=== PATIENT | female | born 1985 | race Caucasian/White ===

== ENCOUNTER 2017-08-12 03:51 | Emergency (ER) | payer BC ==
[~2017-08-12] VITALS: Ht 170.2 cm; Wt 86.5 kg
[2017-08-12 03:56] VITALS: Ht 170.2 cm; Wt 86.5 kg
[2017-08-12] MEDS ORDERED: SODIUM CHLORIDE 0.9% 1000ML 1,000 ML IV STA (04:09)
[2017-08-12] MEDS ORDERED: MoRPHine SULFATE 4 MG/ML 1 ML CARP\\VIAL IV STA ×2 (04:09→06:07)
[2017-08-12] MEDS ORDERED: ONDANSETRON INJ 2 MG/ML 2 ML VIAL IV STA (04:09)
[2017-08-12] MEDS ORDERED: FEXO1TAB58 PO (04:30)
[2017-08-12] MEDS ORDERED: ZOLP10TA PO (04:31)
[2017-08-12] MEDS ORDERED: ROPI5TAB PO (04:32)
[2017-08-12 04:33] VITALS: O2SAT 97
[2017-08-12] MEDS ORDERED: ATV/1 PO (04:33)
[2017-08-12 04:36] LABS: URINE APPEARANCE CLEAR (CLEAR); URINE BILIRUBIN NEG (NEG); URINE COLOR DK YELLOW; URINE NITRITE NEG (NEG); URINE SPECIFIC GRAVITY 1.027 (1.000-1.030); UROBILINOGEN NEG (NEG); ZZUR CULT IF INDIC CLEAN CATCH NO
[2017-08-12 04:37] LABS: BASO % 0.5 %; BASO ABS # 0.05 K/uL (0-0.2); COMPLETE YES; EOS % 1.5 %; HEMATOCRIT 41.7 % (37-47); IG% 0.4 %; LYMPH % 28.7 %; LYMPH ABS # 3.08 K/uL (1.2-3.4); MEAN CELL VOLUME 90.3 fL (80-100); MEAN CORPUSCULAR HEMOGLOBIN 31.6 pg (25-34); MEAN PLATELET VOLUME 9.8 fL (7.4-10.4); MONO % 7.7 %; NEUT % 61.2 %; PLATELET COUNT 272 K/uL (130-400); RED BLOOD COUNT 4.62 M/uL (4.2-5.4); WHITE BLOOD COUNT 10.74 K/uL (4.8-10.8)
[2017-08-12 04:56] LABS: ALT/SGPT 18 U/L (12-78); AST/SGOT 13 U/L (15-37); BLOOD UREA NITROGEN 11 mg/dl (7-18); BUN/CREATININE RATIO 13.5 (10-20); CALCIUM 8.8 mg/dl (8.5-10.1); CARBON DIOXIDE 22 mmol/L (21-32); CHLORIDE 108 mmol/L (98-107); CREATININE 0.81 mg/dl (0.60-1.20); GLUCOSE 92 mg/dl (70-99); POTASSIUM 3.7 mmol/L (3.5-5.1); SODIUM 139 mmol/L (136-145)
[2017-08-12 04:58] LABS: PREG INTERNAL NEGATIVE QC NEG CLEAR BACKGROUND; PREG INTERNAL POSITIVE QC POS CONTROL LINE
[2017-08-12 04:59] LABS: MANUAL MICROSCOPIC REQUIRED? NO; REVIEW REQ? NO
[2017-08-12 04:59] LABS: ALKALINE PHOSPHATASE 85 U/L (45-117)
[2017-08-12] MEDS ORDERED: ALUMINUM/MAGNESIUM SUSP 30 ML UDC PO STA (05:17)
[2017-08-12] MEDS ORDERED: LIDOCAINE HCL 2% VISC SOLN 20 ML UDC PO STA (05:17)
[2017-08-12] MEDS ORDERED: OXYC1TAB3 PO ×2 (06:04→06:06)
[2017-08-12] MEDS ORDERED: ONDA4TAB10 SL (06:04)
--- NOTE | 2017-08-12 06:05 | EMERGENCY ROOM VISIT NOTE ---
History First contact with patient: 04:02 Chief Complaint: ABDOMINAL PAIN Stated Complaint: LWR CHEST/UPR ABD PAIN,SHOULDER PAIN Nursing Triage Summary: Pt woke up at 0245 with severe right upper abd pain and left shoulder pain. History of Present Illness The patient is a 32 year old female who presents to the Emergency Room with complaints of severe right upper quadrant pain for the past few hours described as cramping, ranging in severity 8 out of 10. Nothing makes it better or worse. It radiates to her right shoulder. Patient had and sticky rice last night for dinner. No history of similar symptoms in the past. Patient denies chest pain, dyspnea, vomiting, urinary symptoms, fever, chills, cough, congestion. Patient denies recent or heavy alcohol use. Review of Systems See HPI for pertinent positives & negatives. A total of 10 systems reviewed and were otherwise negative. Past Medical/Surgical History Restless leg, tube ligation, anxiety, insomnia Social History Smoking Status: Never Smoker Smokeless Tobacco Use: No Alcohol Use: occasionally Drug Use: none Housing Status: lives with family Current/Historical Medications Scheduled Ondasetron Odt (Zofran Odt), 4 MG SL Q6H Ropinirole (Requip), 2.5 MG PO HS Zolpidem Tartrate (Ambien), 10 MG PO HS Scheduled PRN Fexofenadine-Pseudoephedrine (Paulina-D 24 Hour Allergy), 1 TAB PO DAILY PRN for ALLERGIC REACTION Lorazepam (Ativan), 1 MG PO TID PRN for Anxiety Allergies Coded Allergies: [place] (Verified Allergy, Mild, GI SYMPTOMS, 08/12/17) Latex1 -Allergic Contact Dermititis (Verified Allergy, Mild, RASH, ) Shellfish Allergy (Verified Allergy, Mild, GI SYMPTOMS, 08/12/17) Physical Exam Vital Signs Date Time Temp Pulse Resp B/P (MAP) Pulse Ox O2 Delivery O2 Flow Rate FiO2 08/12/17 05:58 82 123/67 97 Room Air 08/12/17 04:40 87 08/12/17 04:33 97 Room Air 08/12/17 03:56 36.8 97 20 122/86 97 Room Air Physical Exam VITALS: Vitals are noted on the nurse's note and reviewed by myself. Vital signs stable. GENERAL: Pleasant female, in no acute distress, nondiaphoretic, well-developed well-nourished. SKIN: The skin was without rashes, erythema, edema, or bruising. There is no tenting of the skin. Capillary reflex less than 2 seconds. HEAD: Normocephalic atraumatic. EARS: External auditory canals clear, tympanic membranes pearly weeks without erythema or effusion bilaterally. EYES: Pupils equal round and reactive to light and accommodation. Conjunctivae without injection, sclerae without icterus. Extraocular movements intact. NOSE: Patent, turbinates without inflammation or discharge. MOUTH: Mucous membranes moist. . Pharynx without erythema or exudate. Uvula midline. Airway patent. Tongue does not deviate. NECK: Supple without nuchal rigidity. No lymphadenopathy. No thyromegaly. Cervical spine is nontender. No JVD. HEART: Regular rate and rhythm without murmurs gallops or rubs. LUNGS: Clear to auscultation bilaterally without wheezes, rales or rhonchi. No dullness to percussion. No retractions or accessory muscle use. ABDOMEN: Positive bowel sounds x 4. Normal tympanic percussion. Soft, tender to palpation right upper quadrant, no CVA tenderness, without masses or organomegaly. No guarding or rebound tenderness. MUSCULOSKELETAL: No muscle atrophy, erythema, or edema noted. NEURO: Patient was alert and oriented to person place and time. Normal sensation to light and sharp touch. No focal neurological deficits. Medical Decision & Procedures Laboratory Results 08/12/17 04:25 Red Blood Count 4.62, Mean Corpuscular Volume 90.3, Mean Corpuscular Hemoglobin 31.6, Mean Corpuscular Hemoglobin Concent 35.0, Mean Platelet Volume 9.8, Neutrophils (%) (Auto) 61.2, Lymphocytes (%) (Auto) 28.7, Monocytes (%) (Auto) 7.7, Eosinophils (%) (Auto) 1.5, Basophils (%) (Auto) 0.5, Neutrophils # (Auto) 6.58, Lymphocytes # (Auto) 3.08, Monocytes # (Auto) 0.83, Eosinophils # (Auto) 0.16, Basophils # (Auto) 0.05 08/12/17 04:25 Test 08/12/17 04:25 08/12/17 04:30 White Blood Count 10.74 K/uL (4.8-10.8) Red Blood Count 4.62 M/uL (4.2-5.4) Hemoglobin 14.6 g/dL (12.0-16.0) Hematocrit 41.7 % (37-47) Mean Corpuscular Volume 90.3 fL (80-100) Mean Corpuscular Hemoglobin 31.6 pg (25-34) Mean Corpuscular Hemoglobin Concent 35.0 g/dl (32-36) Platelet Count 272 K/uL (130-400) Mean Platelet Volume 9.8 fL (7.4-10.4) Neutrophils (%) (Auto) 61.2 % Lymphocytes (%) (Auto) 28.7 % Monocytes (%) (Auto) 7.7 % Eosinophils (%) (Auto) 1.5 % Basophils (%) (Auto) 0.5 % Neutrophils # (Auto) 6.58 K/uL (1.4-6.5) Lymphocytes # (Auto) 3.08 K/uL (1.2-3.4) Monocytes # (Auto) 0.83 K/uL (0.11-0.59) Eosinophils # (Auto) 0.16 K/uL (0-0.5) Basophils # (Auto) 0.05 K/uL (0-0.2) RDW Standard Deviation 41.8 fL (36.4-46.3) RDW Coefficient of Variation 12.7 % (11.5-14.5) Immature Granulocyte % (Auto) 0.4 % Immature Granulocyte # (Auto) 0.04 K/uL (0.00-0.02) Anion Gap 9.0 mmol/L (3-11) Est Creatinine Clear Calc Drug Dose 112.7 ml/min Estimated GFR () 111.4 Estimated GFR (Non- 96.1 BUN/Creatinine Ratio 13.5 (10-20) Calcium Level 8.8 mg/dl (8.5-10.1) Total Bilirubin 0.5 mg/dl (0.2-1) Direct Bilirubin < 0.1 mg/dl (0-0.2) Aspartate Amino Transf (AST/SGOT) 13 U/L (15-37) Alanine Aminotransferase (ALT/SGPT) 18 U/L (12-78) Alkaline Phosphatase 85 U/L (45-117) Total Protein 8.0 gm/dl (6.4-8.2) Albumin 4.1 gm/dl (3.4-5.0) Lipase 70 U/L (73-393) Human Chorionic Gonadotropin, Qual NEG (NEG) Urine Color DK YELLOW Urine Appearance CLEAR (CLEAR) Urine pH 5.0 (4.5-7.5) Urine Specific [place] 1.027 (1.000-1.030) Urine Protein NEG (NEG) Urine Glucose (UA) NEG (NEG) Urine Ketones NEG (NEG) Urine Occult Blood NEG (NEG) Urine Nitrite NEG (NEG) Urine Bilirubin NEG (NEG) Urine Urobilinogen NEG (NEG) Urine Leukocyte Esterase NEG (NEG) Medications Administered Medications (Trade) Dose Ordered Sig/Tatyana Route Start Time Stop Time Status Last Admin Dose Admin Morphine Sulfate (MoRPHine SULFATE INJ) 4 mg NOW STAT IV 08/12/17 04:09 08/12/17 04:10 DC 08/12/17 04:38 4 MG Ondansetron HCl (Zofran Inj) 4 mg NOW STAT IV 08/12/17 04:09 08/12/17 04:10 DC 08/12/17 04:38 4 MG Sodium Chloride 1,000 ml @ 999 mls/hr Q1H1M STAT IV 08/12/17 04:09 08/12/17 05:09 DC 08/12/17 04:38 999 MLS/HR Lidocaine HCl (Viscous Lidocaine 2% Soln) 10 ml NOW STAT PO 08/12/17 05:17 08/12/17 05:18 DC 08/12/17 05:33 10 ML Al Hydroxide/Mg Hydroxide (Maalox Susp) 30 ml NOW STAT PO 08/12/17 05:17 08/12/17 05:18 DC 08/12/17 05:33 30 ML ED Course Prior records/ancillary studies reviewed. Triage Nursing notes reviewed. Additional history obtained from family The patient's history was concerning for abdominal pain. Differential diagnosis: Etiologies such as appendicitis, diverticulitis, PUD, biliary pathology, UTI, pancreatitis, obstruction, mesenteric ischemia, aortic pathology, infections, inflammatory bowel disease, renal colic, as well as others were entertained. Physical examination findings: As above. ER treatment provided: Morphine, Zofran, IV fluids On reassessment the patient felt better. Diagnostics interpreted by me: The labs revealed no leukocytosis. Negative hCG. Imaging studies: Ultrasound negative for acute cholecystitis per radiology Exam and history seem consistent with right upper quadrant abdominal pain. This could be related to biliary colic. Patient was advised to do a low-fat healthy diet and follow-up family care in a day or 2 for outpatient testing for further workup on her gallbladder such as a HIDA scan. Patient is afebrile and nontoxic appearing. She was neurovascularly and neurologically intact. Patient did not have acute abdomen on exam. She is tolerating fluids. She is well-appearing. By the evaluation outlined above emergent etiologies such as appendicitis, diverticulitis, PUD, UTI, pancreatitis, obstruction, mesenteric ischemia, aortic pathology, infections, inflammatory bowel disease, renal colic, as well as others were deemed relatively unlikely. The pt informed about the findings as listed above. All questions were answered and pleased with the treatment. Return instructions were outlined and the patient was discharged in stable condition. Outpatient prescription management: Zofran, OxyIR Referral: The patient was referred back to their primary care physician for follow-up in 2 to 3 days for a recheck of the current condition. Case reviewed with my attending. Medical Decision As above Impression Primary Impression: Right upper quadrant abdominal pain Departure Information Dispostion Home / Self-Care Condition GOOD Prescriptions Ondasetron Odt (ZOFRAN ODT) 4 Mg Tab 4 MG SL Q6H, #10 TAB Prov: [place]ia Ruiz .SHEREE 08/12/17 Referrals Lila Carlton D.O. (PCP) Patient Instructions My [facility] Additional Instructions DO NOT drive, drink alcohol, operate machinery, or perform dangerous activities today. You were given medications in the ER that can affect your ability to safely function or operate a vehicle. Oxycodone (OxyIR) 5mg: Take 1-2 pills every four hours for breakthrough pain. Avoid alcohol, operating machinery or dangerous equipment, working on ladders or roofs, DRIVING, or situations where being under the influence may be dangerous. It is recommended to use an tauv-ars-llnsjyh stool softener such as Colace, 100mg twice daily while taking this medication to avoid constipation. Ibuprofen(Motrin, Advil) may be used for fever or pain. Use 600mg every six hours as needed. Take with food. Avoid using more than 2400mg in a 24 hour period. Do not use 2400mg per day for more than three consecutive days without physician direction. Prolonged inappropriate use can lead to stomach upset or ulcers. (AND/OR) Acetaminophen(Tylenol) may be used for fever or pain. Use 1000mg every six hours as needed. Avoid using more than 3000mg in a 24 hour period. Zofran 4mg: Take one every six hours as needed for nausea. Avoid alcohol, operating machinery or dangerous equipment, working on ladders or roofs, DRIVING , or situations where being under the influence may be dangerous. Rest and drink plenty of fluids as tolerated. Slow sips of water or sports drinks are recommended instead of large amounts all at once. Continue current medications. Avoid fatty foods. Recommend low-fat healthy diet. Fatty foods can trigger gallbladder pain. Return to the ER immediately for worsening or persistent abdominal pain, vomiting, fevers, chest pains, difficulty breathing, black or bloody stools, worsening of your condition, or as needed. Follow up with your primary physician in 24 hours for a recheck of your current condition. Recommend outpatient HIDA scan for further testing and/or gallbladder. Your family care doctor can arrange this.
[2017-08-12] MEDS ORDERED: ONDANSETRON HOME PACK 4MG OD TAB PO ONE (06:15)
[2017-08-12] MEDS ORDERED: OXYCODONE IR HOME PACK PO ONE (06:15)
[2017-08-12 06:25] VITALS: BP 123/67; PULSE 82; TEMP 36.8; O2SAT 97
--- NOTE | 2017-08-12 06:44 | DIAGNOSTIC IMAGING REPORT ---
BILIARY ULTRASOUND CLINICAL HISTORY: ] Quadrant abdominal pain COMPARISON STUDY: No previous studies for comparison. FINDINGS: The pancreas appears normal as visualized. The gallbladder appears sonographically normal. There is no ductal dilatation. The common bile duct measures 3 mm. There is no right-sided hydronephrosis. No focal hepatic masses are evident. IMPRESSION: No abnormalities identified. Electronically signed by: Jaylen Lomeli M.D. 08/12/2017 6:42 AM Dictated Date/Time: 08/12/2017 6:41 AM
== END 2017-08-12 06:25 | disposition home or self-care (01) ==
LOC: C.EDB 03:53
DX: R10.11 Right upper quadrant pain (principal); F41.9 Anxiety disorder, unspecified; G25.81 Restless legs syndrome

== ENCOUNTER 2018-02-27 09:04 | Emergency (ER) | payer BC, OTHER ==
[~2018-02-27] VITALS: Ht 170.2 cm; Wt 87.5 kg
[~2018-02-27 09:04] MED LIST: ATV/1 PO; FEXO1TAB58 PO; HYDR-5688 PO; ROPI5TAB PO; ZOLP10TA PO
[2018-02-27 09:12] VITALS: TEMP 36.7; Ht 170.2 cm; Wt 87.5 kg
[2018-02-27] MEDS ORDERED: ONDANSETRON INJ 2 MG/ML 2 ML VIAL IV STA (09:22)
[2018-02-27] MEDS ORDERED: SODIUM CHLORIDE 0.9% 1000ML 1,000 ML IV STA (09:22)
--- NOTE | 2018-02-27 09:28 | EMERGENCY ROOM VISIT NOTE ---
History Report prepared by Kt: Evelyn Gaspar Under the Supervision of: Dr. Saeid Madrid D.O. 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 She is accompanied by her who states she has been having nausea and diarrhea for the past 2 weeks. 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 She was recommended by her primary care doctor to come into the ED due to her low fever. The patient reports she has not vomited in the past 5 days but it extremely nauseous. She describes her abdominal pain as "constant cramping and gassiness." She states that she has been urinating a little more than usual lately but says it does not burn. She denies any recent travel. Her LNMP was last week. Source of History: patient Onset: 1 week Position: other (global) Quality: cramping Timing: constant Associated Symptoms: + nausea, + abdominal pain, + diarrhea, + urinary symptoms (urinating more than usual but not burning) Review of Systems See HPI for pertinent positives & negatives. A total of 10 systems reviewed and were otherwise negative. Past Medical & Surgical Medical Problems: (1) No chronic problems Social History Smoking Status: Never Smoker Alcohol Use: occasionally Drug Use: none Housing Status: lives with family Current/Historical Medications Scheduled Ondasetron Odt (Zofran Odt), 4 MG SL Q6H Ropinirole (Requip), 5 MG PO HS Zolpidem Tartrate (Ambien), 10 MG PO HS Scheduled PRN Fexofenadine-Pseudoephedrine (Paulina-D 24 Hour Allergy), 1 TAB PO DAILY PRN for ALLERGIC REACTION Lorazepam (Ativan), 1 MG PO TID PRN for Anxiety Allergies Coded Allergies: [place] (Verified Allergy, Mild, GI SYMPTOMS, 02/27/18) Digalloyl Trioleate (Unverified Allergy, Mild, SKIN RASH FROM SUNSCREEN, ) Latex1 -Allergic Contact Dermititis (Verified Allergy, Mild, RASH, 02/27/18) Shellfish Allergy (Verified Allergy, Mild, GI SYMPTOMS, 02/27/18) Physical Exam Vital Signs Date Time Temp Pulse Resp B/P (MAP) Pulse Ox O2 Delivery O2 Flow Rate FiO2 02/27/18 11:58 89 18 112/71 95 02/27/18 10:00 85 20 120/80 97 Room Air 02/27/18 09:57 88 02/27/18 09:12 36.7 79 18 111/72 95 Room Air Physical Exam GENERAL: Patient is awake, alert, and in no acute distress. Patient is resting comfortably and showing no signs of anxiety EYES: The conjunctivae are clear. The pupils are round and reactive. EARS, NOSE, MOUTH AND THROAT: The nose is without any evidence of any deformity. Mucous membranes are moist tongue is midline NECK: The neck is nontender and supple. RESPIRATORY: Normal respiratory effort is noted there is no evidence of wheezing rhonchi or rales CARDIOVASCULAR: Regular rate and rhythm noted there no murmurs rubs or gallops normal S1 normal S2 GASTROINTESTINAL: Mildly distended and soft. No guarding or rigidity appreciated. MUSCULOSKELETAL/EXTREMITIES: There is no evidence of gross deformity full range of motion is noted in the hips and shoulders SKIN: There is no obvious evidence of any rash. There are no petechiae, pallor or cyanosis noted. NEUROLOGIC: Patient is awake alert and oriented x3 strength is symmetric patellar reflexes are 2+ bilaterally Medical Decision & Procedures ER Provider Diagnostic Interpretation: Radiology results as stated below per my review and radiologist interpretation: ABDOMEN 2VIEW W/PA CHEST RTN HISTORY: 32 years-old Female N/V/D acute nausea and vomiting COMPARISON: None available TECHNIQUE: PA view of the chest with erect and supine views of the abdomen FINDINGS: Cardiomediastinal and hilar silhouettes are within normal limits. No pneumothorax, pleural effusion, focal airspace consolidation or overt pulmonary edema. The bones of the chest appear grossly intact. No pneumoperitoneum or pneumatosis. Bowel gas pattern is nonobstructive. Moderate stool volume of the right hemicolon. The renal shadows are partially obscured by bowel gas. No urolith identified. No organomegaly or fracture. IMPRESSION: 1. No acute process of the chest. 2. Nonobstructive bowel gas pattern without pneumoperitoneum. The above report was generated using voice recognition software. It may contain grammatical, syntax or spelling errors. Electronically signed by: Maximus Oconnor M.D. 02/27/2018 10:27 AM Laboratory Results 02/27/18 09:30 Red Blood Count 4.76, Mean Corpuscular Volume 87.4, Mean Corpuscular Hemoglobin 30.5, Mean Corpuscular Hemoglobin Concent 34.9, Mean Platelet Volume 9.4, Neutrophils (%) (Auto) 56.9, Lymphocytes (%) (Auto) 31.6, Monocytes (%) (Auto) 9.3, Eosinophils (%) (Auto) 1.4, Basophils (%) (Auto) 0.6, Neutrophils # (Auto) 3.74, Lymphocytes # (Auto) 2.07, Monocytes # (Auto) 0.61, Eosinophils # (Auto) 0.09, Basophils # (Auto) 0.04 02/27/18 09:30 Test 02/27/18 09:30 02/27/18 09:50 White Blood Count 6.56 K/uL (4.8-10.8) Red Blood Count 4.76 M/uL (4.2-5.4) Hemoglobin 14.5 g/dL (12.0-16.0) Hematocrit 41.6 % (37-47) Mean Corpuscular Volume 87.4 fL (80-100) Mean Corpuscular Hemoglobin 30.5 pg (25-34) Mean Corpuscular Hemoglobin Concent 34.9 g/dl (32-36) Platelet Count 277 K/uL (130-400) Mean Platelet Volume 9.4 fL (7.4-10.4) Neutrophils (%) (Auto) 56.9 % Lymphocytes (%) (Auto) 31.6 % Monocytes (%) (Auto) 9.3 % Eosinophils (%) (Auto) 1.4 % Basophils (%) (Auto) 0.6 % Neutrophils # (Auto) 3.74 K/uL (1.4-6.5) Lymphocytes # (Auto) 2.07 K/uL (1.2-3.4) Monocytes # (Auto) 0.61 K/uL (0.11-0.59) Eosinophils # (Auto) 0.09 K/uL (0-0.5) Basophils # (Auto) 0.04 K/uL (0-0.2) RDW Standard Deviation 41.3 fL (36.4-46.3) RDW Coefficient of Variation 12.8 % (11.5-14.5) Immature Granulocyte % (Auto) 0.2 % Immature Granulocyte # (Auto) 0.01 K/uL (0.00-0.02) Anion Gap 8.0 mmol/L (3-11) Est Creatinine Clear Calc Drug Dose 116.2 ml/min Estimated GFR () 114.8 Estimated GFR (Non- 99.1 BUN/Creatinine Ratio 12.1 (10-20) Calcium Level 8.5 mg/dl (8.5-10.1) Total Bilirubin 0.6 mg/dl (0.2-1) Direct Bilirubin 0.1 mg/dl (0-0.2) Aspartate Amino Transf (AST/SGOT) 89 U/L (15-37) Alanine Aminotransferase (ALT/SGPT) 112 U/L (12-78) Alkaline Phosphatase 90 U/L (45-117) Total Protein 7.6 gm/dl (6.4-8.2) Albumin 3.8 gm/dl (3.4-5.0) Lipase 59 U/L (73-393) Human Chorionic Gonadotropin, Qual NEG (NEG) Monoscreen NEG (NEG) Urine Color DK YELLOW Urine Appearance CLOUDY (CLEAR) Urine pH 6.0 (4.5-7.5) Urine Specific [place] 1.031 (1.000-1.030) Urine Protein NEG (NEG) Urine Glucose (UA) NEG (NEG) Urine Ketones NEG (NEG) Urine Occult Blood NEG (NEG) Urine Nitrite NEG (NEG) Urine Bilirubin NEG (NEG) Urine Urobilinogen NEG (NEG) Urine Leukocyte Esterase TRACE (NEG) Urine WBC (Auto) 5-10 /hpf (0-5) Urine RBC (Auto) 5-10 /hpf (0-4) Urine Hyaline Casts (Auto) 10-30 /lpf (0-5) Urine Epithelial Cells (Auto) >30 /lpf (0-5) Urine Bacteria (Auto) NEG (NEG) Laboratory results per my review. Medications Administered Medications (Trade) Dose Ordered Sig/Tatyana Route Start Time Stop Time Status Last Admin Dose Admin Ondansetron HCl (Zofran Inj) 4 mg NOW STAT IV 02/27/18 09:22 02/27/18 09:24 DC 02/27/18 09:50 4 MG Sodium Chloride 1,000 ml @ 999 mls/hr Q1H1M STAT IV 02/27/18 09:22 02/27/18 10:22 DC 02/27/18 09:50 999 MLS/HR ED Course 09: The patient was evaluated in room B5. A complete history and physical examination were performed. 09: Ordered NSS 1,000 ml @ 999 mls/hr IV, Zofran Inj 4 mg IV 1110: Upon reevaluation, the patient is feeling better. I discussed the results and treatment plan with her. She verbalized agreement of the treatment plan. She was discharged home. Medical Decision Prior records/ancillary studies reviewed. Triage Nursing notes reviewed. The patient's history was concerning for fever. Differential diagnosis: Etiologies such as viral syndrome, otitis, pharyngitis, pneumonia, influenza, meningitis, urinary tract infection, sepsis, bacteremia, as well as others were entertained. The patient is a 32-year-old female who presented to the emergency department for evaluation of fever. The patient had a fever through the course of week. She has had nausea vomiting and diarrhea symptoms. Her symptoms have continued to improve. She took her temperature this morning and it was reading low. She called her primary care physician and was referred to the emergency department because her temperature was now low. The patient did not have a physical exam consistent with an acute surgical abdomen. She was treated with IV fluids and IV anti-medics. On subsequent reevaluation she was feeling much better. I discussed patient's laboratory and radiographic studies with her. She was found to have mild elevation in her liver function studies. She was encouraged to follow-up with her primary care physician for recheck of the abnormal labs. I also recommended that if labs continued to worsen she may require further workup such as a hepatitis profile. She was encouraged to continue all medications as prescribed and follow-up with her family doctor but return to the emergency department immediately if symptoms change worsen or the need arises. Medication Reconcilliation Current Medication List: was personally reviewed by me Blood Pressure Screening Patient's blood pressure: Normal blood pressure Blood pressure disposition: Did not require urgent referral Impression Primary Impression: Nausea vomiting and diarrhea Scribe Attestation The scribe's documentation has been prepared under my direction and personally reviewed by me in its entirety. I confirm that the note above accurately reflects all work, treatment, procedures, and medical decision making performed by me. Departure Information Dispostion Home / Self-Care Prescriptions Ondasetron Odt (ZOFRAN ODT) 4 Mg Tab 4 MG SL Q6H for Nausea, #15 TAB Prov: Saeid Madrid, DO 02/27/18 Referrals Lila Carlton D.O. (PCP) Patient Instructions My [facility] Additional Instructions Continue all medications as prescribed. Drink plenty of clear liquids. Continue using Tylenol as directed for pain. Follow-up with your family doctor for further testing. I would recommend repeat liver function studies to ensure your lab values are returning to normal.
[2018-02-27 09:44] LABS: BASO % 0.6 %; BASO ABS # 0.04 K/uL (0-0.2); EOS % 1.4 %; EOS ABS # 0.09 K/uL (0-0.5); HEMATOCRIT 41.6 % (37-47); HEMOGLOBIN 14.5 g/dL (12.0-16.0); IG# 0.01 K/uL (0.00-0.02); LYMPH % 31.6 %; LYMPH ABS # 2.07 K/uL (1.2-3.4); MEAN CELL VOLUME 87.4 fL (80-100); MEAN CORPUSCULAR HEMOGLOBIN 30.5 pg (25-34); MEAN CORPUSCULAR HGB CONC 34.9 g/dl (32-36); MEAN PLATELET VOLUME 9.4 fL (7.4-10.4); MONO % 9.3 %; MONO ABS # 0.61 K/uL (0.11-0.59); NEUT % 56.9 %; NEUT ABS # 3.74 K/uL (1.4-6.5); PLATELET COUNT 277 K/uL (130-400); RED CELL DISTRIBUTION WIDTH CV 12.8 % (11.5-14.5); RED CELL DISTRIBUTION WIDTH SD 41.3 fL (36.4-46.3); WHITE BLOOD COUNT 6.56 K/uL (4.8-10.8)
[2018-02-27 10:01] LABS: ALBUMIN 3.8 gm/dl (3.4-5.0); CALCIUM 8.5 mg/dl (8.5-10.1); CREATININE 0.79 mg/dl (0.60-1.20); POTASSIUM 3.5 mmol/L (3.5-5.1)
[2018-02-27 10:04] LABS: TOTAL PROTEIN 7.6 gm/dl (6.4-8.2)
--- NOTE | 2018-02-27 10:28 | DIAGNOSTIC IMAGING REPORT ---
ABDOMEN 2VIEW W/PA CHEST RTN HISTORY: 32 years-old Female N/V/D acute nausea and vomiting COMPARISON: None available TECHNIQUE: PA view of the chest with erect and supine views of the abdomen FINDINGS: Cardiomediastinal and hilar silhouettes are within normal limits. No pneumothorax, pleural effusion, focal airspace consolidation or overt pulmonary edema. The bones of the chest appear grossly intact. No pneumoperitoneum or pneumatosis. Bowel gas pattern is nonobstructive. Moderate stool volume of the right hemicolon. The renal shadows are partially obscured by bowel gas. No urolith identified. No organomegaly or fracture. IMPRESSION: 1. No acute process of the chest. 2. Nonobstructive bowel gas pattern without pneumoperitoneum. The above report was generated using voice recognition software. It may contain grammatical, syntax or spelling errors. Electronically signed by: Maximus Oconnor M.D. 02/27/2018 10:27 AM Dictated Date/Time: 02/27/2018 10:25 AM
[2018-02-27] MEDS ORDERED: ONDA4TAB10 SL (11:05)
[2018-02-27 11:58] VITALS: BP 112/71; PULSE 89; O2SAT 95
[2018-03-01 15:18] LABS: EBV EARLY ANTIGEN AB < 9.00 U/ML
== END 2018-02-27 11:58 | disposition home or self-care (01) ==
LOC: C.EDB 09:05
DX: R11.2 Nausea with vomiting, unspecified (principal); R19.7 Diarrhea, unspecified; R94.5 Abnormal results of liver function studies; Z91.018 Allergy to other foods; Z88.8 Allergy status to other drugs, medicaments and biological substances; Z91.040 Latex allergy status; Z91.013 Allergy to seafood

== ENCOUNTER 2018-06-13 17:23 | Emergency (ER) | payer BC, OTHER ==
[~2018-06-13] VITALS: Ht 170.2 cm; Wt 88.6 kg
[~2018-06-13 17:23] MED LIST changes: -HYDR-5688 PO; +ONDA4TAB10 SL
[2018-06-13 17:39] VITALS: TEMP 36.7; Ht 170.2 cm; Wt 88.6 kg
[2018-06-13] MEDS ORDERED: ACETAMINOPHEN 500 MG TAB PO STA (17:56)
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
[2018-06-13] MEDS ORDERED: DIAZEPAM 5MG TAB PO STA (18:30)
[2018-06-13] MEDS ORDERED: KETOROLAC TROMETHAMINE 60 MG/2 ML VIAL IM STA (18:30)
[2018-06-13] MEDS ORDERED: ONDANSETRON 4MG OD TAB PO STA (19:39)
[2018-06-13] MEDS ORDERED: ROPINIROLE HCL 5 MG TAB PO STA (19:39)
[2018-06-13] MEDS ORDERED: DiphenhydrAMINE HCL 50 MG/ML VIAL IM STA (19:39)
[2018-06-13 22:15] VITALS: BP 116/76; PULSE 84; O2SAT 98
== END 2018-06-13 22:16 | disposition home or self-care (01) ==
LOC: C.EDB 17:25 → C.EDD 22:16
DX: S16.1XXA Strain of muscle, fascia and tendon at neck level, initial encounter (principal); M54.9 Dorsalgia, unspecified; R51 Headache; F32.9 Major depressive disorder, single episode, unspecified; G25.81 Restless legs syndrome; G47.00 Insomnia, unspecified; Z79.899 Other long term (current) drug therapy; Z91.040 Latex allergy status; Z91.013 Allergy to seafood; Z91.018 Allergy to other foods; V49.9XXA Car occupant (driver) (passenger) injured in unspecified traffic accident, initial encounter

== ENCOUNTER 2020-03-29 14:07 | Observation (INO) ==
[2020-03-29] MEDS ORDERED: SODIUM CHLORIDE 0.9% 1000ML 1,000 ML IV ONE (15:01)
[2020-03-29] MEDS ORDERED: KETOROLAC TROMETHAMINE 15 MG/ML VIAL IV STA (15:09)
[2020-03-29 15:17] LABS: Basophils # (auto) 0.05 K/uL (0-0.2); Basophils % (auto) 0.6 %; Eosinophils # (auto) 0.18 K/uL (0-0.5); Eosinophils % (auto) 2.1 %; Hematocrit (blood only) 43.2 % (37-47); Immature Granulocytes # (auto) 0.02 K/uL (0.00-0.02); Immature Granulocytes % (auto) 0.2 %; Lymphocytes % (auto) 28.5 %; Mean Corpuscular Hemoglobin 30.3 pg (25-34); Mean Corpuscular Hgb Conc 32.4 g/dL (32-36); Mean Corpuscular Volume 93.5 fL (80-100); Mean Platelet Volume 9.6 fL (7.4-10.4); Monocytes # (auto) 0.73 K/uL (0.11-0.59); Monocytes % (auto) 8.3 %; Neutrophils # (auto) 5.28 K/uL (1.4-6.5); Neutrophils % (auto) 60.3 %; Platelet Count 331 K/uL (130-400); RDW Coefficient of Variation 13.8 % (11.5-14.5); RDW Standard Deviation 47.1 fL (36.4-46.3); Red Blood Count 4.62 M/uL (4.2-5.4); White Blood Count 8.76 K/uL (4.8-10.8)
--- NOTE | 2020-03-29 15:19 | Emergency Department Note ---
Impression & Plan Lethargy, Syncope, Pain, dental ED Provider Note Provider: Wilfrid Cortes MD DATE OF SERVICE: 03/29/2020 CHIEF COMPLAINT: Syncope, fatigue HISTORY OF PRESENT ILLNESS: Patient is a 35-year-old female with a past medical history of RLS, anxiety/depression, chronic pain, and recent evaluation here for right upper dental pain presenting today after 2 syncopal episodes at work. Patient states he was well yesterday still having some dental pain but otherwise okay. Patient states that she got up this morning and was having difficulty keeping her eyes open and said her speech seemed a little bit difficult and she did not "feel tired "she seemed to have lack of energy. 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 No significant trauma reported. No fever reported. Developed a headache just over an hour ago. Minor. Does not feel like prior history of migraines. Denies nausea or abdominal pain. Denies focal weakness or numbness. Denies recent sick contact. Denies rash. Did not take any of the prescribed pain medicine today. REVIEW OF SYSTEMS: A total of 10 review of systems was obtained and negative except as stated above in the HPI. PAST MEDICAL HISTORY: As noted above MEDICATIONS: Reviewed her medication list. 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 PERRL, EOMI. NECK: Trachea midline. Supple. ENT: Mucous membranes pink and moist. Patient does have the right upper canine with evidence of caries and tenderness in this area. LUNGS: Airway patent. No retractions. Breath sounds clear with good air entry bilaterally. HEART: Regular rate and rhythm. No chest wall tenderness ABDOMEN: Soft and non-tender, without guarding or rebound. SKIN: Acyanotic, warm, dry, without rashes EXTREMITIES: Without swelling, tenderness or deformity NEUROLOGICAL: No focal deficits moving all extremities. No aphasia. No facial droop or slurred speech. Patient somewhat slow to answer at times and occasionally her eyes are closing during the exam. EK beats per normal sinus rhythm. No PVCs. No acute ST segment elevation. QTc 452. CONTINUOUS CARDIAC MONITORING: was ordered and showed a heart rate of 81 bpm in normal sinus rhythm Patient's hypertension was referred to the hospitalist [facility] 15. HOSPITAL COURSE: 1500 Patient was first seen and H&P performed. 1720 Patient reassessed and updated. Patient was unchanged with relates to the headache and tooth pain. Still somewhat slow with answering questions at times and still complained of significant fatigue. 1750 reassessed reevaluate the patient. She still quite fatigued. Discussed with her safety planning going home given the fact of her significant fatigue and lethargy and that she is by herself. She is in agreement with further observation Patient's laboratory studies and imaging reviewed. Differential includes Vasovagal event, dehydration, infection, hypoglycemia, electrolyte abnormalities, cardiac sources, intracerebral event, pulmonary embolism, seizure, toxicologic, neurologic, as well as other pathologies. IMPRESSION/MEDICAL DECISION MAKING: Patient is with nonspecific complaint of fatigue with 2 episodes of syncope. No real focality to her exam. No significant trauma risk factors prior to this. Otherwise fairly well before today. Denies any alcohol does not smell of alcohol. No history of similar reported and no family history similar this reported. Mild headache at this time although reporting more frontal tooth pain that she bumped when she caught herself during 1 of the episodes where she very briefly syncopized. Did not sustain any significant other fall to the ground. That she did fall about and has been a headache and this is atypical to perform a CT of the head including a cranial abnormality. I doubt this is acute CVA or SAH. Given some Toradol here for pain. Basic labs were obtained. EKG without significant findings of arrhythmia. Given some IV fluids here. Benign abdomen. No concerning rash. CT the head is unremarkable. CT of the chest completed given the positive dimer without acute finding. Doubt pneumonia or an infec tious pulmonary source. UA is pending but she is also on amoxicillin making UTI unlikely source of her issue. TSH within normal is. No significant lecture light abnormality. Again no real focality to exam but significant fatigue. Reassessed the patient she was without significant improvement we will give some IV Tylenol. Is dealing with pain from a tooth. Discussed with patient her home situation and she lives alone does not have any friends or family would be able to watch or stay with her tonight. Discussed with her my concerns about her ability to go home given her complaints. Discussed with her will return to the hospital for evaluation for possible observation here overnight for further evaluation and monitoring. UDS and B12 level are pending. Do not want to give her anything stronger for pain given the fatigue she is having right now. DIAGNOSIS: Syncope, lethargy, right upper tooth dental pain DISPOSITION: Being evaluated by the hospitalist Past Med/Surg History Medical History (Updated 03/29/20 @ 17:58 by Wilfrid Cortes M.D.) Abdominal pain, generalized Alternating constipation and diarrhea (Inactive) Kidney stones (Resolved) Snoring Social History Preferred Language: Wolof Communication Ability: Effective Cruise Director Required: No Beliefs That Will Affect Care: None marital status: Legally Current Living Situation: Spouse and Family Current Living Situation Comment: Lives with and son Feels Safe at Home: Yes Smoking Status: Never smoker Second Hand Exposure: Yes (father smoked) ; Hx Alcohol Use: Yes Alcohol type: wine and hard liquor Hx Substance Use: No Allergies Allergies Allergy/AdvReac Type Severity Reaction Status Date / Time cucumber Allergy Mild GI SYMPTOMS Verified 03/29/20 15:25 latex Allergy Mild RASH Verified 03/29/20 15:25 shellfish derived Allergy Mild GI SYMPTOMS Verified 03/29/20 15:25 iodine Allergy Unknown Verified 03/29/20 15:25 nitrous oxide AdvReac Anxiety Verified 03/29/20 15:25 Digalloyl Trioleate Allergy Mild SKIN RASH Uncoded 03/29/20 15:25 FROM SUNSCREEN kale Allergy Gastrointestinal Uncoded 03/29/20 15:25 Upset Home Meds Home Medications Medication Instructions Recorded Confirmed escitalopram oxalate 10 mg PO DAILY 03/26/20 03/29/20 lorazepam 1 mg PO BID PRN 03/26/20 03/29/20 pantoprazole 40 mg PO DAILYBB 03/26/20 03/29/20 rizatriptan 5 mg PO UD PRN 03/26/20 03/29/20 ropinirole 1 mg PO HS 03/26/20 03/29/20 zolpidem 20 mg PO HS 03/29/20 03/29/20 Previous Rx's Medication Instructions Recorded amoxicillin 500 mg PO TID #20 tab 03/26/20 Results & Data (ED) Vital Signs Vital Signs - 24 hr 03/29/20 14:15 03/29/20 14:36 03/29/20 15:00 Temperature 37.1 C Temperature Source Oral Pulse Rate 105 H 99 H Pulse Rate [Apical] 110 H Pulse Rate from SpO2 Sensor 101 H Respiratory Rate 20 20 15 Respiratory Effort / Characteristics Non-Labored Spontaneous Non-Labored Spontaneous Respiratory Depth Normal Normal Respiratory Pattern Regular Regular Blood Pressure 132/83 139/83 Blood Pressure [Left Arm] 160/109 H Blood Pressure Mean 99 95 Blood Pressure Mean [Left Arm] 126 Blood Pressure Position [Left Arm] Lying Pulse Oximetry 95 95 95 Oxygen Delivery Method Room Air Room Air Room Air Sepsis Recent Fever Within 48 Hours No Sepsis Action Taken by Nursing No Action Required 03/29/20 15:30 03/29/20 16:30 03/29/20 17:00 Temperature Temperature Source Pulse Rate 90 79 81 Pulse Rate [Apical] Pulse Rate from SpO2 Sensor 91 H 77 84 Respiratory Rate 14 13 15 Respiratory Effort / Characteristics Respiratory Depth Respiratory Pattern Blood Pressure 140/86 131/81 141/92 H Blood Pressure [Left Arm] Blood Pressure Mean 102 104 105 Blood Pressure Mean [Left Arm] Blood Pressure Position [Left Arm] Pulse Oximetry 95 95 97 Oxygen Delivery Method Room Air Room Air Sepsis Recent Fever Within 48 Hours Sepsis Action Taken by Nursing 03/29/20 17:35 03/29/20 18:00 03/29/20 18:34 Temperature Temperature Source Pulse Rate 78 81 70 Pulse Rate [Apical] Pulse Rate from SpO2 Sensor 78 81 70 Respiratory Rate 14 18 16 Respiratory Effort / Characteristics Respiratory Depth Respiratory Pattern Blood Pressure 129/81 129/84 148/86 H Blood Pressure [Left Arm] Blood Pressure Mean 92 99 101 Blood Pressure Mean [Left Arm] Blood Pressure Position [Left Arm] Pulse Oximetry 97 97 97 Oxygen Delivery Method Room Air Sepsis Recent Fever Within 48 Hours Sepsis Action Taken by Nursing Laboratory Data Result diagrams: 03/29/20 14:45 03/29/20 14:45 Lab Results 03/29/20 03/29/20 03/29/20 Range/Units 14:45 14:45 14:45 WBC 8.76 (4.8-10.8) K/uL RBC 4.62 (4.2-5.4) M/uL Hgb 14.0 (12.0-16.0) g/dL Hct 43.2 (37-47) % MCV 93.5 (80-100) fL MCH 30.3 (25-34) pg MCHC 32.4 (32-36) g/dL RDW Std Deviation 47.1 H (36.4-46.3) fL RDW Coeff of Faisal 13.8 (11.5-14.5) % Plt Count 331 (130-400) K/uL MPV 9.6 (7.4-10.4) fL Immature Gran % (Auto) 0.2 % Neut % (Auto) 60.3 % Lymph % (Auto) 28.5 % [place] % (Auto) 8.3 % Eos % (Auto) 2.1 % Baso % (Auto) 0.6 % Immature Gran # (Auto) 0.02 (0.00-0.02) K/uL Neut # (Auto) 5.28 (1.4-6.5) K/uL Lymph # (Auto) 2.50 (1.2-3.4) K/uL [place] # (Auto) 0.73 H (0.11-0.59) K/uL Eos # (Auto) 0.18 (0-0.5) K/uL Baso # (Auto) 0.05 (0-0.2) K/uL D-Dimer 830 H* (0-500) ug/L FEU Sodium 141 (136-145) mmol/L Potassium 3.9 (3.5-5.1) mmol/L Chloride 109 H (98-107) mmol/L Carbon Dioxide 27 (21-32) mmol/L Anion Gap 5.0 (3-11) BUN 11 (7-18) mg/dl Creatinine 0.85 (0.6-1.2) mg/dl Est Cr Clr Drug Dosing 109.3 ml/min Est GFR ( Amer) 102.9 Est GFR (Non-Af Amer) 88.8 BUN/Creatinine Ratio 12.5 (10-20) Glucose 87 (70-99) mg/dl Calcium 8.4 L (8.5-10.1) mg/dl Magnesium 2.1 (1.8-2.4) mg/dl Total Bilirubin 0.2 (0.2-1) mg/dl AST 13 L (15-37) U/L ALT 20 (12-78) U/L Alkaline Phosphatase 100 (45-117) U/L Total Protein 8.0 (6.4-8.2) gm/dl Albumin 3.9 (3.4-5.0) gm/dl Globulin 4.1 H (2.5-4.0) gm/dl Albumin/Globulin Ratio 1.0 (0.9-2) TSH 0.913 (0.300-4.500) uIu/ml HCG, Qual (Negative) Specimen Hemolysis Urine Color Urine Appearance (Clear) Urine pH (4.5-7.5) Ur Specific [place] (1.000-1.030) Urine Protein (Negative) Urine Glucose (UA) (Negative) Urine Ketones (Negative) Urine Blood (Negative) Urine Nitrite (Negative) Urine Bilirubin (Negative) Urine Urobilinogen (Negative) Ur Leukocyte Esterase (Negative) Lyme Disease IgG Ab (Negative) Lyme Disease IgM Ab (Negative) 03/29/20 03/29/20 Range/Units 14:45 18:35 WBC (4.8-10.8) K/uL RBC (4.2-5.4) M/uL Hgb (12.0-16.0) g/dL Hct (37-47) % MCV (80-100) fL MCH (25-34) pg MCHC (32-36) g/dL RDW Std Deviation (36.4-46.3) fL RDW Coeff of Faisal (11.5-14.5) % Plt Count (130-400) K/uL MPV (7.4-10.4) fL Immature Gran % (Auto) % Neut % (Auto) % Lymph % (Auto) % [place] % (Auto) % Eos % (Auto) % Baso % (Auto) % Immature Gran # (Auto) (0.00-0.02) K/uL Neut # (Auto) (1.4-6.5) K/uL Lymph # (Auto) (1.2-3.4) K/uL [place] # (Auto) (0.11-0.59) K/uL Eos # (Auto) (0-0.5) K/uL Baso # (Auto) (0-0.2) K/uL D-Dimer (0-500) ug/L FEU Sodium (136-145) mmol/L Potassium (3.5-5.1) mmol/L Chloride (98-107) mmol/L Carbon Dioxide (21-32) mmol/L Anion Gap (3-11) BUN (7-18) mg/dl Creatinine (0.6-1.2) mg/dl Est Cr Clr Drug Dosing ml/min Est GFR ( Amer) Est GFR (Non-Af Amer) BUN/Creatinine Ratio (10-20) Glucose (70-99) mg/dl Calcium (8.5-10.1) mg/dl Magnesium (1.8-2.4) mg/dl Total Bilirubin (0.2-1) mg/dl AST (15-37) U/L ALT (12-78) U/L Alkaline Phosphatase (45-117) U/L Total Protein (6.4-8.2) gm/dl Albumin (3.4-5.0) gm/dl Globulin (2.5-4.0) gm/dl Albumin/Globulin Ratio (0.9-2) TSH (0.300-4.500) uIu/ml HCG, Qual Negative (Negative) Specimen Hemolysis Urine Color Yellow Urine Appearance Clear (Clear) Urine pH 7.0 (4.5-7.5) Ur Specific [place] > 1.045 H (1.000-1.030) Urine Protein Negative (Negative) Urine Glucose (UA) Negative (Negative) Urine Ketones Negative (Negative) Urine Blood Negative (Negative) Urine Nitrite Negative (Negative) Urine Bilirubin Negative (Negative) Urine Urobilinogen Negative (Negative) Ur Leukocyte Esterase Negative (Negative) Lyme Disease IgG Ab Negative (Negative) Lyme Disease IgM Ab Negative (Negative) Administered Medications Ioversol (Optiray 320 125ml) 119 ml IV ONCE PRN PRN Reason: Interaction Checking Stop: 04/02/20 16:01 Last Admin: 03/29/20 16:03 Dose: 119 ml Documented by: [id number] Discontinued Medications Sodium Chloride (Nss 1000ml) 1,000 mls @ 999 mls/hr IV .Q1H1M ONE Stop: 03/29/20 16:01 Last Infusion: 03/29/20 16:19 Dose: 0 mls/hr Documented by: [id number] Admin: 03/29/20 15:18 Dose: 999 mls/hr Documented by: [id number] Acetaminophen (Ofirmev) 1,000 mg in 100 mls @ 400 mls/hr IV NOW STA Stop: 03/29/20 17:26 Last Infusion: 03/29/20 17:40 Dose: 0 mls/hr Documented by: [id number] Admin: 03/29/20 17:25 Dose: 400 mls/hr Documented by: [id number] Ketorolac Tromethamine (Toradol) 15 mg IV NOW STA Stop: 03/29/20 15:10 Last Admin: 03/29/20 15:19 Dose: 15 mg Documented by: [id number] Discharge Plan Visit Data Chief Complaint: Syncope Stated Complaint: SYNCOPE, CONFUSION ED Provider: Wilfrid Cortes Discharge Problem: Lethargy, Syncope, Pain, dental Patient Disposition: Being Evaluated by Hospitalist Forms Stand Alone Forms: [facility]withus Prescriptions Prescriptions: No Action zolpidem 10 mg tablet 20 mg PO HS RF: 0 escitalopram oxalate 10 mg tablet 10 mg PO DAILY RF: 0 ropinirole 1 mg tablet 1 mg PO HS RF: 0 lorazepam 1 mg tablet 1 mg PO BID PRN (Reason: Anxiety) RF: 0 pantoprazole 40 mg tablet,delayed release (DR/EC) 40 mg PO DAILYBB RF: 0 rizatriptan 5 mg tablet,disintegrating 5 mg PO UD PRN (Reason: Headache) RF: 0 amoxicillin 500 mg tablet 500 mg PO TID Qty: 20 RF: 0 Referrals Referrals: Lila Carlton DO [Primary Care Provider] - Discharge Problem: Syncope Qualifiers: Syncope type: unspecified Qualified Code(s): R55 - Syncope and collapse
[2020-03-29 15:25] LABS: Albumin Level 3.9 gm/dl (3.4-5.0); BUN Creatinine Ratio 12.5 (10-20); Calcium 8.4 mg/dl (8.5-10.1); Creatinine Clr Calc Pharmacy 109.3 ml/min; Est GFR (African American) 102.9; Est GFR (Non-African American) 88.8; Magnesium 2.1 mg/dl (1.8-2.4); Potassium 3.9 mmol/L (3.5-5.1)
[2020-03-29 15:37] LABS: Bilirubin,Total 0.2 mg/dl (0.2-1); Globulin 4.1 gm/dl (2.5-4.0); Thyroid Stimulating Hormone 0.913 uIu/ml (0.300-4.500)
[2020-03-29 15:38] LABS: D Dimer 830 ug/L FEU (0-500)
--- NOTE | 2020-03-29 15:39 | XRay Report ---
XR chest 1V portable CLINICAL HISTORY: weakness dyspnea COMPARISON STUDY: 08/04/2018 FINDINGS: The bones soft tissues and hemidiaphragms are normal. The cardiomediastinal silhouette is n ormal. The lungs are clear. The pulmonary vasculature is normal. IMPRESSION: Negative chest. ACT 112: Negative or not required by law. The above report was generated using voice recognition software. It may contain grammatical, syntax or spelling errors. Electronically signed by: Moises Petty M.D. 03/29/2020 3:38 PM
[2020-03-29 15:52] LABS: Lyme Ab IgG w/WB Rflx Negative (Negative); Lyme Ab IgM w/WB Rflx Negative (Negative)
--- NOTE | 2020-03-29 15:59 | CT Scan Report ---
CT SCAN OF THE BRAIN WITHOUT IV CONTRAST CLINICAL HISTORY: Fall. Weakness. COMPARISON STUDY: CT of the brain dated 06/13/2018. TECHNIQUE: Unenhanced axial CT scan of the brain is performed from the vertex to the skull base. A d ose lowering technique was utilized adhering to the principles of ALARA. CT DOSE: 537.48 mGy.cm FINDINGS: Brain parenchyma: The brain parenchyma is normal in appearance. There is no hemorrhage, mass effect, or evidence of acute territorial ischemia by CT criteria. Lee-white matter differentiation is preser alex. No extra-axial fluid collection is seen. Ventricles, sulci, cisterns: Normal in configuration. Intracranial vasculature: The visualized intracranial vasculature at the skull base is normal in appe arance. Calvarium: Unremarkable. Sinuses and mastoids: The visualized paranasal sinuses are clear. The mastoid air cells are well pneu matized. Orbits: The bony orbits are grossly intact. IMPRESSION: No acute intracranial abnormality. ACT 112: Negative or not required by law. Electronically signed by: Clifton Shah M.D. 03/29/2020 3:58 PM
[2020-03-29 16:01] LABS: Pregnancy Test, Serum Negative (Negative)
[2020-03-29] MEDS ORDERED: OPTIRAY 320 125ml IV PRN (16:02)
--- NOTE | 2020-03-29 16:11 | CT Scan Report ---
CT ANGIOGRAM OF THE CHEST CLINICAL HISTORY: Syncope. Elevated d-dimer. Possible pulmonary embolism. COMPARISON STUDY: Chest x-ray dated 03/29/2020 TECHNIQUE: Following the IV administration of 119 mL of Optiray-320, CT angiogram of the thorax was p erformed from the thoracic inlet to the lung bases utilizing the pulmonary embolus protocol. Images a re reviewed in the axial, sagittal, and coronal planes. IV contrast was administered without complica tion. MIP imaging was performed. A dose lowering technique was utilized adhering to the principles o f ALARA. CT DOSE: 453.49 mGy.cm FINDINGS: No pathologically enlarged axillary mediastinal or hilar lymph nodes were visualized. There was no evidence of thoracic aortic dilatation. The heart is borderline enlarged. There is trace pericardial fluid. There were no pulmonary artery filling defects to indicate acute pulmonary embolism. No pleural effusions are visualized. There is no pneumothorax. There are dependent atelectatic changes. There is minor mosaic attenuation the lungs raising the possibility of air trapping. Slight groundglass attenuation of the lungs is lik lobo secondary to a suboptimal inspiration. IMPRESSION: 1. No evidence of acute pulmonary embolism 2. No evidence of focal pulmonary consolidation 3. No evidence of pathologic adenopathy 4. Slight groundglass attenuation the lungs, likely secondary to suboptimal inspiration. Slight mosai c attenuation suggesting mild air-trapping ACT 112: Negative or not required by law. Electronically signed by: Jayeln Lomeli M.D. 03/29/2020 4:10 PM
[2020-03-29] MEDS ORDERED: ACETAMINOPHEN 1,000 MG/100 ML VIAL IV STA (17:12)
[2020-03-29 18:48] LABS: Appearance Urine Clear (Clear); Bilirubin Urine Negative (Negative); Blood Urine Negative (Negative); Color Urine Yellow; Glucose Urine UA Negative (Negative); Ketones Urine Negative (Negative); Leukocyte Esterase Urine Negative (Negative); Nitrite Urine Negative (Negative); Protein Urine Negative (Negative); Specific Gravity Urine > 1.045 (1.000-1.030); Urobilinogen Urine Negative (Negative)
[2020-03-29 19:11] LABS: Amphetamines+Metham, Urine Neg (Neg); Barbiturates, Urine Neg (Neg); Benzodiazepine, Urine Neg (Neg); Cocaine, Urine Neg (Neg); MDMA (Ecstacy), Urine Neg (Neg); Methadone, Urine Neg (Neg); Opiate, Urine Pos (Neg); Phencyclidine, Urine Neg (Neg)
--- NOTE | 2020-03-29 20:03 | History & Physical Report ---
Date of Service March 29, 2020 Assessment & Plan (1) Lethargy: Patient with complaint of lethargy. Etiology unclear at this time. Laboratory workup and imaging unrevealing. Suspect lethargy is largely secondary to medication effects - Ambien, Lorazepam, Hydrocodone, small amount of EtOH. Lethargy/weakness may also be secondary to Amoxicillin which can cause weakness, fatigue and abnormal taste sensation Some concern for possibility of Covid-19 - she reports cough/SOB/lethargy, also wtih elevated d-dimer and some ground-glass findings on CT chest. Overall low clinical suspicion -Check Covid-19 -Airborne precautions until Covid testing resulted -Hold PRN lorazepam and Ambien Present on Admission?: Yes (2) GERD (gastroesophageal reflux disease): Chronic. Stable -Continue Protonix Present on Admission?: Yes (3) Insomnia: Chronic. -Holding Ambien in setting of lethargy Present on Admission?: Yes (4) Restless leg syndrome: Chronic -Continue Ropinirole Present on Admission?: Yes (5) Anxiety: Chronic -Continue Escitalopram -Holding Lorazepam PRN Present on Admission?: Yes (6) Syncope: ?Medication effects, dehydration. +Prodrome of dizziness and weakness. EKG unremarkable. Neurologically intact -Check orthostatic VS -IVF Present on Admission?: Yes (7) Dental decay: Patient currently undergoing treatment for dental abscess -Continue Amoxicillin -Pain control with Tylenol, Ibuprofen if needed F/E/N - NSS, monitor electrolytes, regular diet as tolerated Ppx - low risk Code - Full Dispo - Observation to Med-Surge Admission and Anticipated Discharge Date Admission Date: 03/29/20 Anticipated date of discharge: 03/30/20 History of Present Illness Chief Complaint: weakness, fatigue Primary Care Provider: DO Kimberley Chavez Jacklyn is a 35yo C female with history of Anxiety/Depression, insomnia and RLS presenting with diffuse weakness and fatigue. Patient reports that yesterday was her birthday. She had a Zoom birthday libertarian, drank a little bit of alcohol and went to bed around 02:00 this morning. She took her medications prior to going to bed around 01:30. She woke up this morning around 10:30 and felt diffusely weak and fatigued. She went to work and had two syncopal episodes. She reports that she is currently having a difficult time staying awake and functioning. Her symptoms have been consistent since this morning with no worsening or improvement. Recent right maxillary dental infection - currently on Amoxicillin day 2, Hydrocodone. She reports not taking any Hydrocodone since yesterday morning. She denies fevers/chills/nausea/vomiting/diarrhea/constipation. She does have some cough and shortness of breath as well as stuffy nose for the last two days. She also reports slight alteration in her sense of taste where everything tastes sour. No known sick contacts or contacts with Covid+ individuals. She has been trying to socially distance. ER Course: Tylenol, Toradol Allergies Allergy/AdvReac Type Severity Reaction Status Date / Time cucumber Allergy Mild GI SYMPTOMS Verified 03/29/20 15:25 latex Allergy Mild RASH Verified 03/29/20 15:25 shellfish derived Allergy Mild GI SYMPTOMS Verified 03/29/20 15:25 iodine Allergy Unknown Verified 03/29/20 15:25 nitrous oxide AdvReac Anxiety Verified 03/29/20 15:25 Digalloyl Trioleate Allergy Mild SKIN RASH Uncoded 03/29/20 15:25 FROM SUNSCREEN kale Allergy Gastrointestinal Uncoded 03/29/20 15:25 Upset Home Medications Home Medications Medication Instructions Recorded Confirmed Type amoxicillin 500 mg PO TID #20 tab 03/26/20 03/29/20 Rx escitalopram oxalate 10 mg PO DAILY 03/26/20 03/29/20 History lorazepam 1 mg PO BID PRN 03/26/20 03/29/20 History pantoprazole 40 mg PO DAILYBB 03/26/20 03/29/20 History rizatriptan 5 mg PO UD PRN 03/26/20 03/29/20 History ropinirole 1 mg PO HS 03/26/20 03/29/20 History zolpidem 20 mg PO HS 03/29/20 03/29/20 History Past Med/Surg History Medical History (Updated 03/29/20 @ 21:50 by Argentina Hopkins DO) Abdominal pain, generalized Alternating constipation and diarrhea (Inactive) Kidney stones (Resolved) Snoring Social History Preferred Language: Chinese Communication Ability: Effective Roller Repairer Required: No Beliefs That Will Affect Care: None marital status: Legally Current Living Situation: Spouse and Family Current Living Situation Comment: Lives with and son Feels Safe at Home: Yes Smoking Status: Never smoker Second Hand Exposure: Yes (father smoked) ; Hx Alcohol Use: Yes Alcohol type: wine and hard liquor Hx Substance Use: No Review of Systems Review of Systems: All systems reviewed & are unremarkable except as noted in HPI & below +cough +SOB +Muscle pain Physical Exam Physical Exam: General: patient resting comfortably, mildly somnolent, NAD, non-toxic in appearance, AA&O x 4 Skin: warm, dry, intact, no rashes or lesions HEENT: NC/AT, PERRL, EOMI, anicteric sclera, conjunctiva without injection, external ear normal to inspection and nontender, nares patent, slightly dry mucus membranes, dentition intact, no oropharyngeal lesions, neck supple, trachea midline, no LAD, no thyromegaly, no JVD Heart: +S1/S2, regular, no m/r/g Lungs: equal air entry bilaterally, no rales/rhonchi/wheezes Abd: +BS, soft, NT/ND, no masses/organomegaly/ascites Ext: warm, 2+ pulses in UE/LE bilaterally, no clubbing/cyanosis or edema Neuro: nonfocal, patient AA&O x 4, speech intact, no facial droop, moving all extremities on command with equal strength 5/5 Results & Data Results & Data ([facility]) Vital Signs (Past 12 Hours) Vital Signs Temp Pulse Pulse Resp BP BP Pulse Ox 03/29/20 19:30 74 14 137/91 96 03/29/20 19:00 72 15 128/90 96 03/29/20 18:34 70 16 148/86 H 97 03/29/20 18:00 81 18 129/84 97 03/29/20 17:35 78 14 129/81 97 03/29/20 17:00 81 15 141/92 H 97 03/29/20 16:30 79 13 131/81 95 03/29/20 15:30 90 14 140/86 95 03/29/20 15:00 99 H 15 139/83 95 03/29/20 14:36 110 H 20 160/109 H 95 03/29/20 14:15 37.1 C 105 H 20 132/83 95 Laboratory Results Lab Results 06/03/1303/29/20 03/29/20 Range/Units 14:45 14:45 14:45 WBC 8.76 (4.8-10.8) K/uL RBC 4.62 (4.2-5.4) M/uL Hgb 14.0 (12.0-16.0) g/dL Hct 43.2 (37-47) % MCV 93.5 (80-100) fL MCH 30.3 (25-34) pg MCHC 32.4 (32-36) g/dL RDW Std Deviation 47.1 H (36.4-46.3) fL RDW Coeff of Faisal 13.8 (11.5-14.5) % Plt Count 331 (130-400) K/uL MPV 9.6 (7.4-10.4) fL Immature Gran % (Auto) 0.2 % Neut % (Auto) 60.3 % Lymph % (Auto) 28.5 % [place] % (Auto) 8.3 % Eos % (Auto) 2.1 % Baso % (Auto) 0.6 % Immature Gran # (Auto) 0.02 (0.00-0.02) K/uL Neut # (Auto) 5.28 (1.4-6.5) K/uL Lymph # (Auto) 2.50 (1.2-3.4) K/uL [place] # (Auto) 0.73 H (0.11-0.59) K/uL Eos # (Auto) 0.18 (0-0.5) K/uL Baso # (Auto) 0.05 (0-0.2) K/uL D-Dimer 830 H* (0-500) ug/L FEU Sodium 141 (136-145) mmol/L Potassium 3.9 (3.5-5.1) mmol/L Chloride 109 H (98-107) mmol/L Carbon Dioxide 27 (21-32) mmol/L Anion Gap 5.0 (3-11) BUN 11 (7-18) mg/dl Creatinine 0.85 (0.6-1.2) mg/dl Est Cr Clr Drug Dosing 109.3 ml/min Est GFR ( Amer) 102.9 Est GFR (Non-Af Amer) 88.8 BUN/Creatinine Ratio 12.5 (10-20) Glucose 87 (70-99) mg/dl Calcium 8.4 L (8.5-10.1) mg/dl Magnesium 2.1 (1.8-2.4) mg/dl Total Bilirubin 0.2 (0.2-1) mg/dl AST 13 L (15-37) U/L ALT 20 (12-78) U/L Alkaline Phosphatase 100 (45-117) U/L Total Protein 8.0 (6.4-8.2) gm/dl Albumin 3.9 (3.4-5.0) gm/dl Globulin 4.1 H (2.5-4.0) gm/dl Albumin/Globulin Ratio 1.0 (0.9-2) Vitamin B12 (211-911) pg/ml TSH 0.913 (0.300-4.500) uIu/ml HCG, Qual (Negative) Specimen Hemolysis Urine Color Urine Appearance (Clear) Urine pH (4.5-7.5) Ur Specific [place] (1.000-1.030) Urine Protein (Negative) Urine Glucose (UA) (Negative) Urine Ketones (Negative) Urine Blood (Negative) Urine Nitrite (Negative) Urine Bilirubin (Negative) Urine Urobilinogen (Negative) Ur Leukocyte Esterase (Negative) Urine Opiates Screen (Neg) Ur Methadone, Qual (Neg) Urine Barbiturates (Neg) Ur Phencyclidine (PCP) (Neg) U Amphetamin/Meth Scrn (Neg) MDMA (Ecstasy) Screen (Neg) U Benzodiazepines Scrn (Neg) Ur Cocaine Metabolite (Neg) U Marijuana (THC) Screen (Neg) Lyme Disease IgG Ab (Negative) Lyme Disease IgM Ab (Negative) 03/29/20 03/29/20 03/29/20 Range/Units 14:45 18:35 18:35 WBC (4.8-10.8) K/uL RBC (4.2-5.4) M/uL Hgb (12.0-16.0) g/dL Hct (37-47) % MCV (80-100) fL MCH (25-34) pg MCHC (32-36) g/dL RDW Std Deviation (36.4-46.3) fL RDW Coeff of Faisal (11.5-14.5) % Plt Count (130-400) K/uL MPV (7.4-10.4) fL Immature Gran % (Auto) % Neut % (Auto) % Lymph % (Auto) % [place] % (Auto) % Eos % (Auto) % Baso % (Auto) % Immature Gran # (Auto) (0.00-0.02) K/uL Neut # (Auto) (1.4-6.5) K/uL Lymph # (Auto) (1.2-3.4) K/uL [place] # (Auto) (0.11-0.59) K/uL Eos # (Auto) (0-0.5) K/uL Baso # (Auto) (0-0.2) K/uL D-Dimer (0-500) ug/L FEU Sodium (136-145) mmol/L Potassium (3.5-5.1) mmol/L Chloride (98-107) mmol/L Carbon Dioxide (21-32) mmol/L Anion Gap (3-11) BUN (7-18) mg/dl Creatinine (0.6-1.2) mg/dl Est Cr Clr Drug Dosing ml/min Est GFR ( Amer) Est GFR (Non-Af Amer) BUN/Creatinine Ratio (10-20) Glucose (70-99) mg/dl Calcium (8.5-10.1) mg/dl Magnesium (1.8-2.4) mg/dl Total Bilirubin (0.2-1) mg/dl AST (15-37) U/L ALT (12-78) U/L Alkaline Phosphatase (45-117) U/L Total Protein (6.4-8.2) gm/dl Albumin (3.4-5.0) gm/dl Globulin (2.5-4.0) gm/dl Albumin/Globulin Ratio (0.9-2) Vitamin B12 (211-911) pg/ml TSH (0.300-4.500) uIu/ml HCG, Qual Negative (Negative) Specimen Hemolysis Urine Color Yellow Urine Appearance Clear (Clear) Urine pH 7.0 (4.5-7.5) Ur Specific [place] > 1.045 H (1.000-1.030) Urine Protein Negative (Negative) Urine Glucose (UA) Negative (Negative) Urine Ketones Negative (Negative) Urine Blood Negative (Negative) Urine Nitrite Negative (Negative) Urine Bilirubin Negative (Negative) Urine Urobilinogen Negative (Negative) Ur Leukocyte Esterase Negative (Negative) Urine Opiates Screen Pos H (Neg) Ur Methadone, Qual Neg (Neg) Urine Barbiturates Neg (Neg) Ur Phencyclidine (PCP) Neg (Neg) U Amphetamin/Meth Scrn Neg (Neg) MDMA (Ecstasy) Screen Neg (Neg) U Benzodiazepines Scrn Neg (Neg) Ur Cocaine Metabolite Neg (Neg) U Marijuana (THC) Screen Neg (Neg) Lyme Disease IgG Ab Negative (Negative) Lyme Disease IgM Ab Negative (Negative) 03/29/20 Range/Units 18:55 WBC (4.8-10.8) K/uL RBC (4.2-5.4) M/uL Hgb (12.0-16.0) g/dL Hct (37-47) % MCV (80-100) fL MCH (25-34) pg MCHC (32-36) g/dL RDW Std Deviation (36.4-46.3) fL RDW Coeff of Faisal (11.5-14.5) % Plt Count (130-400) K/uL MPV (7.4-10.4) fL Immature Gran % (Auto) % Neut % (Auto) % Lymph % (Auto) % [place] % (Auto) % Eos % (Auto) % Baso % (Auto) % Immature Gran # (Auto) (0.00-0.02) K/uL Neut # (Auto) (1.4-6.5) K/uL Lymph # (Auto) (1.2-3.4) K/uL [place] # (Auto) (0.11-0.59) K/uL Eos # (Auto) (0-0.5) K/uL Baso # (Auto) (0-0.2) K/uL D-Dimer (0-500) ug/L FEU Sodium (136-145) mmol/L Potassium (3.5-5.1) mmol/L Chloride (98-107) mmol/L Carbon Dioxide (21-32) mmol/L Anion Gap (3-11) BUN (7-18) mg/dl Creatinine (0.6-1.2) mg/dl Est Cr Clr Drug Dosing ml/min Est GFR ( Amer) Est GFR (Non-Af Amer) BUN/Creatinine Ratio (10-20) Glucose (70-99) mg/dl Calcium (8.5-10.1) mg/dl Magnesium (1.8-2.4) mg/dl Total Bilirubin (0.2-1) mg/dl AST (15-37) U/L ALT (12-78) U/L Alkaline Phosphatase (45-117) U/L Total Protein (6.4-8.2) gm/dl Albumin (3.4-5.0) gm/dl Globulin (2.5-4.0) gm/dl Albumin/Globulin Ratio (0.9-2) Vitamin B12 243 (211-911) pg/ml TSH (0.300-4.500) uIu/ml HCG, Qual (Negative) Specimen Hemolysis Urine Color Urine Appearance (Clear) Urine pH (4.5-7.5) Ur Specific [place] (1.000-1.030) Urine Protein (Negative) Urine Glucose (UA) (Negative) Urine Ketones (Negative) Urine Blood (Negative) Urine Nitrite (Negative) Urine Bilirubin (Negative) Urine Urobilinogen (Negative) Ur Leukocyte Esterase (Negative) Urine Opiates Screen (Neg) Ur Methadone, Qual (Neg) Urine Barbiturates (Neg) Ur Phencyclidine (PCP) (Neg) U Amphetamin/Meth Scrn (Neg) MDMA (Ecstasy) Screen (Neg) U Benzodiazepines Scrn (Neg) Ur Cocaine Metabolite (Neg) U Marijuana (THC) Screen (Neg) Lyme Disease IgG Ab (Negative) Lyme Disease IgM Ab (Negative) Diagnostic Findings XR chest 1V portable CLINICAL HISTORY: weakness dyspnea COMPARISON STUDY: 08/04/2018 FINDINGS: The bones soft tissues and hemidiaphragms are normal. The cardiom ediastinal silhouette is normal. The lungs are clear. The pulmonary vasculature is normal. IMPRESSION: Negative chest. ACT 112: Negative or not required by law. The above report was generated using voice recognition software. It may contain grammatical, syntax or spelling errors. Electronically signed by: Moises Petty M.D. 03/29/2020 3:38 PM Dictated: 03/29/20 1538 Transcribed: 03/29/[address] SCAN OF THE BRAIN WITHOUT IV CONTRAST CLINICAL HISTORY: Fall. Weakness. COMPARISON STUDY: CT of the brain dated 06/13/2018. TECHNIQUE: Unenhanced axial CT scan of the brain is performed from the vertex to the skull base. A dose lowering technique was utilized adhering to the principles of ALARA. CT DOSE: 537.48 mGy.cm FINDINGS: Brain parenchyma: The brain parenchyma is normal in appearance. There is no hemorrhage, mass effect, or evidence of acute territorial ischemia by CT criteria. Lee-white matter differentiation is preserved. No extra-axial fluid collection is seen. Ventricles, sulci, cisterns: Normal in configuration. Intracranial vasculature: The visualized intracranial vasculature at the skull base is normal in appearance. Calvarium: Unremarkable. Sinuses and mastoids: The visualized paranasal sinuses are clear. The mastoid air cells are well pneumatized. Orbits: The bony orbits are grossly intact. IMPRESSION: No acute intracranial abnormality. ACT 112: Negative or not required by law. Electronically signed by: Clifton Shah M.D. 03/29/2020 3:58 PM Dictated: 03/29/20 1556 Transcribed: 03/29/[address] ANGIOGRAM OF THE CHEST CLINICAL HISTORY: Syncope. Elevated d-dimer. Possible pulmonary embolism. COMPARISON STUDY: Chest x-ray dated 03/29/2020 TECHNIQUE: Following the IV administration of 119 mL of Optiray-320, CT angiogram of the thorax was performed from the thoracic inlet to the lung bases utilizing the pulmonary embolus protocol. Images are reviewed in the axial, sagittal, and coronal planes. IV contrast was administered without complication. MIP imaging was performed. A dose lowering technique was utilized adhering to the principles of ALARA. CT DOSE: 453.49 mGy.cm FINDINGS: No pathologically enlarged axillary mediastinal or hilar lymph nodes were visualized. There was no evidence of thoracic aortic dilatation. The heart is borderline enlarged. There is trace pericardial fluid. There were no pulmonary artery filling defects to indicate acute pulmonary embolism. No pleural effusions are visualized. There is no pneumothorax. There are dependent atelectatic changes. There is minor mosaic attenuation the lungs raising the possibility of air trapping. Slight groundglass attenuation of the lungs is likely secondary to a suboptimal inspiration. IMPRESSION: 1. No evidence of acute pulmonary embolism 2. No evidence of focal pulmonary consolidation 3. No evidence of pathologic adenopathy 4. Slight groundglass attenuation the lungs, likely secondary to suboptimal inspiration. Slight mosaic attenuation suggesting mild air-trapping ACT 112: Negative or not required by law. Electronically signed by: Jaylen Lomeli M.D. 03/29/2020 4:10 PM Dictated: 03/29/20 1605 Transcribed: 03/29/20 1609 ECG Additional Comments: The study shows NSR at 96bpm, normal axis, RF=357, QRS=84, KWm=047, no acute ischemic changes Code Status & VTE Plan Code Status FULL VTE Prophylaxis Plan VTE Prophylaxis will be ordered: Yes PG Care Time/CCT Total # of Minutes Spent Total Time Spent with Patient: Total time spent is greater than 50% in coordination of care (as documented) at patient's floor/unit and/or counseling patient: Coding Level of Care Code 97913 OBS Care - Level 3 Diagnoses Lethargy R53.83 GERD (gastroesophageal reflux disease) K21.9 Esophagitis presence: esophagitis presence not specified Insomnia G47.00 Restless leg syndrome G25.81 Anxiety F41.9 Syncope R55 Syncope type: unspecified Dental decay K02.9 (1) Syncope Syncope type: unspecified Qualified Code(s): R55 - Syncope and collapse (2) GERD (gastroesophageal reflux disease) Esophagitis presence: esophagitis presence not specified Qualified Code(s): K21.9 - Gastro-esophageal reflux disease without esophagitis
[2020-03-29 23:57] LABS: Phosphorus 3.6 mg/dl (2.5-4.9)
[2020-03-30] MEDS: AMOXICILLIN 500 MG CAP PO SCH ×2 (00:30→08:39)
[2020-03-30] MEDS: SODIUM CHLORIDE 0.9% 1000ML 1,000 ML IV SCH ×2 (00:30→08:36)
[2020-03-30] MEDS: ROPINIROLE HCL 1 MG TABLET PO SCH ×2 (00:31→21:14)
[2020-03-30] MEDS: ACETAMINOPHEN 325 MG TAB PO PRN ×2 (01:18→09:55)
[2020-03-30] MEDS ORDERED: KETOROLAC TROMETHAMINE 15 MG/ML VIAL IV ONE (04:09)
[2020-03-30] MEDS: PANTOprazole 40 MG TAB PO SCH (05:45)
--- NOTE | 2020-03-30 06:40 | Electrocardiogram Report ---
Test Reason : Blood Pressure : / mmHG Vent. Rate : 096 BPM Atrial Rate : 096 BPM P-R Int : 142 ms QRS Dur : 084 ms QT Int : 358 ms P-R-T Axes : 022 013 007 degrees QTc Int : 452 ms Normal sinus rhythm Normal ECG When compared with ECG of 04-AUG-2018 17:17, Vent. rate has increased BY 42 BPM Confirmed by Lemuel Blue ([id number]) on 03/30/2020 6:39:29 AM Referred By: ED Confirmed By:Lemuel Blue
[2020-03-30] MEDS: ESCITALOPRAM OXALATE 10 MG TAB PO SCH (08:39)
[2020-03-30] MEDS ORDERED: IOVERSOL 100ml IV PRN (10:18)
--- NOTE | 2020-03-30 10:55 | CT Scan Report ---
CT SCAN OF THE FACIAL BONES WITH IV CONTRAST CLINICAL HISTORY: Dental pain. Right-sided swelling. Clinical concern for abscess. COMPARISON STUDY: CT of the brain dated 03/29/2020. TECHNIQUE: High-resolution CT scan of the facial bones is performed following the IV administration of 93 cc of Optiray 320. Images are reviewed in the axial, sagittal, and coronal planes. IV contrast was administered without complication. A dose lowering technique was utilized adhering to the princi ples of ALA. CT DOSE: 159.73 mGy.cm FINDINGS: The skeletal structures are well mineralized. There is no evidence of facial bone fracture. The bony orbits are intact and the orbital contents are within normal limits. The zygomatic arches, nasal bones, and pterygoid plates are preserved. The maxilla and mandible are intact. There are no la yering blood products within the paranasal sinuses. A 1.8 cm retention cyst is noted in the right max illary antrum. The paranasal sinuses are otherwise clear. The mastoid air cells are well pneumatized. The visualized calvarium and upper cervical spine are maintained. Partially imaged brain parenchyma is within normal limits. Numerous dental caries are identified. A periapical lucency is identified ar ound the left central maxillary incisor. There is overlying cortical breakthrough. No abscess is seen . Additional small periapical lucencies are seen around right and left maxillary molars. There is no associated cortical breakthrough. The carotid arteries and jugular veins are widely patent. IMPRESSION: 1. No facial bone abnormality is identified. 2. There are numerous dental caries. 3. Additionally, there are at least 3 periapical lucencies identified. The largest is around the left central maxillary incisor and there is associated cortical breakthrough. Follow-up with dentistry is recommended. 4. There is no evidence of periodontal abscess as clinically queried. ACT 112: Negative or not required by law. Electronically signed by: Clifton Shah M.D. 03/30/2020 10:53 AM
[2020-03-30] MEDS ORDERED: KETOROLAC TROMETHAMINE 15 MG/ML VIAL IV PRN (13:10)
--- NOTE | 2020-03-30 13:19 | Hospitalist Progress Note ---
Date of Service March 30, 2020 Assessment & Plan (1) Dental decay: (2) Jaw pain: - Consult oromaxillofacial surg - Plan to have Dr. Leonard see the patient in the morning - Switch antibiotic from amoxicillin (had received for 3 days) to clindamycin IV - NPO after midnight, tolerating food with moderate pain. - Tylenol and toradol for pain - CT facial bones with contrast completed- does not show apparent abscess but has many areas of dental decay. She has been unable to see a dentist due to COVID-19. Right upper incisor broken approximately 3 weeks ago, right upper first molar has been broken for 1 year. (3) Lethargy: -Resolved, likely pharmacotherapy with high dose zolpidem 20 mg HS, as well as ropinirole and lorazepam - holding meds (4) Syncope: - EKG reviewed - NSR, slightly tachycardic with HR 90s, improved today to 76 - Check Orthostatics - Likely secondary to pharmacotherapy as above, no signs of syncopal events since here in the hospital. - No family history of cardiac arrhythmias that she is aware of (5) Anxiety: (6) Depression: - Cont escitalopram 10 mg daily, holding lorazepam (7) Insomnia: - Holding zolpidem 20 mg HS (8) GERD (gastroesophageal reflux disease): - Stable, continue pantoprazole (9) Restless leg syndrome: - Holding requip for now Admission and Anticipated Discharge Date Admission Date: March 29, 2020 Subjective The patient was seen and examined this morning. Pt states she is doing ok today. He R side of her jaw is still hurting and swollen, has been on amoxicillin x 3 days. She denies fever, chills, sweats. She is eating and drinking without significant difficulty but it does hurt. Tylenol isn't really cutting the pain for her, but we have been hesitant to give her other medications due to her lethargy and episodes of passing on admission. She is fully awake, without any signs of lethargy today. We discussed having oromaxillofacial surgery see her tomorrow morning, and she is agreeable to this. She expressed some hesitancy with staying because she has a pet cat, and does not want to leave him alone, but plans to have a family member check in on the pet. Review of Systems Review of Systems: Constitutional: No fever, sweats or chills, no lightheadedness, no dizziness Eyes: No diplopia, no worsening or blurred vision ENT: normal hearing, no trouble swallowing, + Right upper jaw pain and swelling Respiratory: No cough, sputum, dyspnea at rest or on exertion Cardiovascular: No chest pain, tightness or palpitations Abdomen: No pain, nausea, vomiting, diarrhea or constipation Musculoskeletal: No joint pain, calf pain, swelling Neurologic: No weakness, numbness/tingling, or balance problems Psychiatric: + anxiety and depression Skin: No rash or itch Physical Exam Physical Exam: General: awake, alert, no apparent distress, + obese Head: Normocephalic, atraumatic ENT: PERRL, EOMI, no pharyngeal exudate, mucous membranes moist, + R upper incisor with dental dante and R upper 1st molar broken in half. + Surrounding edema, no purulence. Chest: Clear to auscultation, on room air, no adventitious breath sounds Cardiac: Regular rate and rhythm, no murmur, no JVD, normal peripheral pulses, good capillary refill Abdominal: NABS x 4 quadrants, soft, nontender to palpation, no rebound, guarding or tenderness Extremities: Normal inspection, no peripheral edema or erythema, calfs nontender to palpation Psych: Normal mood and affect Neuro: AAO x 3, strength intact bilaterally and rated 5/5, no motor deficits, speech is clear, no peripheral sensory deficits Results & Data Results & Data ([facility]) Vital Signs (Past 12 Hours) Vital Signs Temp Pulse Resp BP Pulse Ox 03/30/20 07:05 37.2 C 73 18 119/79 96 PG Care Time/CCT Total # of Minutes Spent Total Time Spent with Patient: Total time spent is greater than 50% in coordination of care (as documented) at patient's floor/unit and/or counseling patient: Coding Level of Care Code 60854 Subseq Hosp Care Lvl 3 Diagnoses Dental decay K02.9 Jaw pain R68.84 Lethargy R53.83 Syncope R55 Syncope type: unspecified Anxiety F41.9 Depression F32.9 Insomnia G47.00 GERD (gastroesophageal reflux disease) K21.9 Esophagitis presence: esophagitis presence not specified Restless leg syndrome G25.81 (1) Syncope Syncope type: unspecified Qualified Code(s): R55 - Syncope and collapse (2) GERD (gastroesophageal reflux disease) Esophagitis presence: esophagitis presence not specified Qualified Code(s): K21.9 - Gastro-esophageal reflux disease without esophagitis
[2020-03-30] MEDS: CLINDAMYCIN 600 MG in DEXTROSE 5% 50 ML IV SCH ×2 (13:55→21:14)
--- NOTE | 2020-03-30 15:15 | Surgery Consultation ---
Date of Consultation March 30, 2020 I reviewed Kimberley`s chart, CT scan and ER history. My plan is taking her to the OR tomorrow to remove as many of the fractured/ decayed teeth that are causing her problems. Given that she visited [facility] ER 2 times since late December for the same issues and a poor response to oral antibiotics, intervention with this admission is a ppropriate. Oral Maxillofacial Surgery Exam (emergency consult) Present Complaint: I have pain/swelling/drainage from my infected teeth. My Gums are swollen and tender. Acute pain upper right and chronic pain upper left and lower right. Symptoms have been ongoing for a while they would come and go, over the last few weeks upper left very severe. Fractured teeth, exposed nerves, swollen gingival tissue consistent with subperiosteal abscess due to infected teeth. A detailed oral exam was completed. Finding--There are many carious fractured teeth, tender gingival tissue with deep gum pocket formation.Teeth are grossly decayed and removal is clinical indicated to prevent progression of infection and control pain.. The CT shows the following: The following teeth are decayed/fractured--# 5,6,11,12 and 31 The following teeth are planned to be removed--# 5,6,11,12 and 31 Soft tissue of the floor of the mouth, tongue, hard/soft palate, posterior pharyngeal area all with in normal limits, no pathology or abnormal findings noted. + swollen gingival tissue=subgingival (subperiosteal) abscess Cancer exam--No lesions noted that require follow up or Bx. Oral Care---Overall oral care is fair Occlusion---Class I with missing and drifted teeth TMJ exam: No pop, clicking, pain, good ROM, No history of TMJ injury or dysfunction Periodontal exam---periodontal dx, needs good dental cleaning and routine dental exam, Neck is supple, FROM, Able to extend and flex neck w/o difficulty, no masses, no abnormalities, no airway issues, no evidence of sleep apnea had sleep study AHI was 4. Plan: Set up with general anesthesia in hospital to remove the Fx and DK teeth # 5,6,11,12,31 Risks reviewed (see below) Head and Neck exam completed I reviewed the treatment plan and consent with the patient Understanding was expressed. Time was given for questions regarding the surgery, risks and post op care. The procedure will be set up tomorrow in OR with GA Anticipate D/C later Wednesday afternoon or Wednesday AM with oral antibiotics Follow up my office then referral for [facility] for dental exam, cleaning, restorative dentistry and teeth replacement--all this reviewed with Kimberley. Review of informed consent with patient. Reason for surgery to remove carious teeth / fractured decayed teeth: The following teeth are decayed and fractured and removal is indicated ARIEL: Risks discussed: Pain,swelling,infection, dry socket, delayed healing, nerve injury to face,lips,tongue,chin area which could be permanent (rare). TMJ, jaw stiffness, change in bite (rare), ear pain (referred). Sinus problems like fistula or infection. Need to leave a small root fragment in place to avoid injury to nerve or sinus. Home care reviewed--tooth brushing, rinsing, follow up care with Dr Leonard. diet=[id number] dental. Discussed activity level, driving/work while on Rx pain Meds. Plan: For the GA and surgery at Hospital tomorrow at 9 AM NPO 12 midnight. History of Present Illness Attending Physician: Ramon Wiley MD Allergies Allergy/AdvReac Type Severity Reaction Status Date / Time latex Allergy Mild RASH Verified 03/29/20 15:25 iodine Allergy Unknown Verified 03/29/20 15:25 cucumber AdvReac Mild GI SYMPTOMS Verified 03/29/20 23:29 shellfish derived AdvReac Mild GI SYMPTOMS Verified 03/29/20 23:29 nitrous oxide AdvReac Anxiety Verified 03/29/20 15:25 Digalloyl Trioleate Allergy Mild SKIN RASH Uncoded 03/29/20 15:25 FROM SUNSCREEN kale AdvReac Gastrointestinal Uncoded 03/29/20 23:29 Upset Home Medications Home Medications Medication Instructions Recorded Confirmed Type amoxicillin 500 mg PO TID #20 tab 03/26/20 03/29/20 Rx escitalopram oxalate 10 mg PO DAILY 03/26/20 03/29/20 History lorazepam 1 mg PO BID PRN 03/26/20 03/29/20 History pantoprazole 40 mg PO DAILYBB 03/26/20 03/29/20 History rizatriptan 5 mg PO UD PRN 03/26/20 03/29/20 History ropinirole 1 mg PO HS 03/26/20 03/29/20 History zolpidem 20 mg PO HS 03/29/20 03/29/20 History Patient History Medical History (Updated 03/29/20 @ 21:50 by Argentina Hopkins DO) Abdominal pain, generalized Alternating constipation and diarrhea (Inactive) Kidney stones (Resolved) Snoring Social History Preferred Language: Cymraes Communication Ability: Effective [employer] Printer Required: No Beliefs That Will Affect Care: None marital status: Legally Current Living Situation: Alone Current Living Situation Comment: Lives with and son Feels Safe at Home: Yes Smoking Status: Never smoker Second Hand Exposure: Yes (father smoked) ; Hx Alcohol Use: Yes Alcohol type: wine Hx Substance Use: No Results & Data Vital Signs (Past 12 Hours) Vital Signs Temp Pulse Resp BP Pulse Ox 03/30/20 15:06 36.8 C 75 21 124/78 96 03/30/20 07:05 37.2 C 73 18 119/79 96 PG Care Time/CCT Total # of Minutes Spent Total Time Spent with Patient: Total time spent is greater than 50% in coordination of care (as documented) at patient's floor/unit and/or counseling patient: Coding Level of Care Code 07223 Inpt Consult Level 3
[2020-03-30] MEDS ORDERED: CHLORHEXIDINE GLUCONATE 0.12% 480 ML MT PRN (17:01)
[2020-03-30] MEDS: KETOROLAC 30 MG/ML VIAL IV PRN (18:03)
[2020-03-31] MEDS: KETOROLAC 30 MG/ML VIAL IV PRN (00:06)
[2020-03-31] MEDS: PANTOprazole 40 MG TAB PO SCH (05:57)
[2020-03-31] MEDS: CLINDAMYCIN 600 MG in DEXTROSE 5% 50 ML IV SCH ×2 (05:57→15:10)
[2020-03-31] MEDS ORDERED: MIDAZOLAM HCL 1 MG/ML 2ML VIAL ONE (07:04)
[2020-03-31] MEDS ORDERED: DEXAMETHASONE SOD INJ 4 MG/ML VIAL ONE (07:04)
[2020-03-31] MEDS ORDERED: fentaNYL citrate 100 MCG/2 ML VIAL ONE ×2 (07:04→09:19)
[2020-03-31] MEDS ORDERED: LIDOCAINE HCL 2% 2 ML VIAL/AMP(20MG/ML) INFIL ONE (07:04)
[2020-03-31] MEDS ORDERED: ONDANSETRON INJ 2 MG/ML 2 ML VIAL ONE ×2 (07:04→09:53)
[2020-03-31] MEDS ORDERED: PROPOFOL IV EMULSION 10 MG/ML 20 ML VIAL IV ONE (07:04)
[2020-03-31] MEDS ORDERED: SUCCINYLCHOLINE CHLORIDE 20 MG/ML 10 ML VIAL IV ONE (07:04)
[2020-03-31] MEDS ORDERED: BUPIVACAINE/EPINEPHRINE 0.5% 1:200,000 1.8 ML CARP ONE (07:05)
[2020-03-31] MEDS ORDERED: KETOROLAC 30 MG/ML VIAL IV PRN (08:12)
[2020-03-31] MEDS ORDERED: ONDANSETRON INJ 2 MG/ML 2 ML VIAL IV PRN (08:12)
[2020-03-31] MEDS ORDERED: ATROPINE SULFATE 0.1 MG/ML 10ML SYR IV PRN (08:12)
[2020-03-31] MEDS ORDERED: PROMETHAZINE HCL 6.25 MG in SODIUM CHLORIDE 0.9% 50 ML IV PRN (08:12)
[2020-03-31] MEDS ORDERED: fentaNYL citrate 100 MCG/2 ML VIAL IV PRN (08:12)
--- NOTE | 2020-03-31 08:12 | Anesthesiology Consultation ---
Date of Service March 31, 2020 Assessment & Plan (1) Encounter for pre-operative examination: Chart Review Chart Review: Acceptable Risk for Surgery History Surgery Operation Date: 03/31/20 09:00 Proposed Procedures p Incision and Drainage General - Armando Leonard DMD s Complete Bony Impaction - Armando Leonard DMD Height/Weight Height: 5 ft 7.5 in Weight: 96.8 kg Allergies Allergy/AdvReac Type Severity Reaction Status Date / Time latex Allergy Mild RASH Verified 03/29/20 15:25 iodine Allergy Unknown Verified 03/29/20 15:25 cucumber AdvReac Mild GI SYMPTOMS Verified 03/29/20 23:29 shellfish derived AdvReac Mild GI SYMPTOMS Verified 03/29/20 23:29 nitrous oxide AdvReac Anxiety Verified 03/29/20 15:25 Digalloyl Trioleate Allergy Mild SKIN RASH Uncoded 03/29/20 15:25 FROM SUNSCREEN kale AdvReac Gastrointestinal Uncoded 03/29/20 23:29 Upset Medications Home Medications Medication Instructions Recorded Confirmed Last Taken amoxicillin 500 mg PO TID #20 tab 03/26/20 03/29/20 03/29/20 escitalopram oxalate 10 mg PO DAILY 03/26/20 03/29/20 Unknown lorazepam 1 mg PO BID PRN 03/26/20 03/29/20 Unknown pantoprazole 40 mg PO DAILYBB 03/26/20 03/29/20 Unknown rizatriptan 5 mg PO UD PRN 03/26/20 03/29/20 Unknown ropinirole 1 mg PO HS 03/26/20 03/29/20 Unknown zolpidem 20 mg PO HS 03/29/20 03/29/20 Unknown Active Medications Generic Name Dose Route Start Last Admin Trade Name Freq PRN Reason Stop Dose Admin Acetaminophen 650 mg 03/29/20 23:25 03/30/20 09:55 Tylenol PO 04/28/20 23:24 650 mg Q4H PRN Administration pain/fever Escitalopram Oxalate 10 mg 03/30/20 09:00 03/30/20 08:39 Lexapro Tab PO 04/29/20 08:59 10 mg DAILY KE Administration Clindamycin Phosphate 600 mg/ 54 mls @ 100 mls/hr 03/30/20 14:00 03/31/20 06:34 Dextrose IV 04/09/20 13:59 Infused Q8H KE Infusion Ioversol 119 ml 03/29/20 16:02 03/29/20 16:03 Optiray 320 125ml IV 04/02/20 16:01 119 ml ONCE PRN Administration Interaction Checking Ioversol 93 ml 03/30/20 10:18 03/30/20 10:19 Optiray 320 100ml IV 04/03/20 10:17 93 ml ONCE PRN Administration Interaction Checking Ketorolac Tromethamine 30 mg 03/30/20 17:10 03/31/20 00:06 Toradol IV 04/04/20 13:09 30 mg Q6H PRN Administration Pain Pantoprazole Sodium 40 mg 03/30/20 06:30 03/31/20 05:57 Protonix PO 04/29/20 06:29 Not Given DAILYBB KE Ropinirole HCl 1 mg 03/29/20 23:25 03/30/20 21:14 Requip PO 04/28/20 23:24 1 mg HS KE Administration Past Medical History Medical History Abdominal pain, generalized Alternating constipation and diarrhea (Inactive) Kidney stones (Resolved) Snoring Past Family History Family History Grandmother Family history of diabetes mellitus paternal Past Surgical History Surgical History H/O colonoscopy (07/2018) History of bilateral tubal ligation History of esophagogastroduodenoscopy (EGD) (07/2018) History of laparoscopy cyst removed off ovary History of tooth extraction wisdom teeth Social History Smoking Status: Never smoker Hx Alcohol Use: Yes Alcohol type: wine alcohol intake frequency: a few times a month Hx Substance Use: No substance use type: does not use Physical Exam Vital Signs Last Vital Signs Temp 36.3 C L 03/31/20 07:33 Pulse 60 03/31/20 07:33 Resp 18 03/31/20 07:33 BP 130/85 03/31/20 07:33 Pulse Ox 97 03/31/20 07:33 Testing Laboratory Results 03/29/20 14:45 03/29/20 14:45 Urine Color Yellow 03/29/20 18:35 Urine Appearance Clear (Clear) 03/29/20 18:35 Urine pH 7.0 (4.5-7.5) 03/29/20 18:35 Ur Specific [place] > 1.045 (1.000-1.030) H 03/29/20 18:35 Urine Protein Negative (Negative) 03/29/20 18:35 Urine Glucose (UA) Negative (Negative) 03/29/20 18:35 Urine Ketones Negative (Negative) 03/29/20 18:35 Urine Nitrite Negative (Negative) 03/29/20 18:35 Ur Leukocyte Esterase Negative (Negative) 03/29/20 18:35 Electrocardiogram Date: 03/29/20 Findings: + NSR @ (18)
[2020-03-31] MEDS ORDERED: OXYMETAZOLINE 0.05% 30 ML BTL ONE (08:31)
--- NOTE | 2020-03-31 08:55 | History & Physical Bridge Note ---
Date of Service March 31, 2020 History & Physical Bridge Note I have examined the patient, reviewed the History & Physical and in the interval since the performance of the History & Physical I have noted the following changes of clinical significance: no changes noted
--- NOTE | 2020-03-31 09:42 | Post Operative Brief Note ---
PG Immediate Post Op with CF Date of Surgery March 31, 2020 Pre & Post Diagnosis Operation Date: 03/31/20 09:00 Pre-Op Diagnosis: Dental Abscess secondary to fractured and decayed teeth # 4,5,6,11,12,31 Post-Op Diagnosis: Dental Abscess + same as above I identified the patient and participated in the time-out.: Yes Procedure Operation Date: 03/31/20 09:00 Actual Procedures p Incision and Drainage of subperiosteal abscess due to infected teeth # 4,5,6,11,12,31--- General - Armando Leonard DMD s (same as above) Armando Leonard DMD Surgeon Armando Leonard DMD Can Marker none Estimated Blood Loss 2 Findings Consistent with Post-Op Diagnosis
--- NOTE | 2020-03-31 09:59 | Progress Note ---
Date of Service March 31, 2020 Assessment & Plan Admission and Anticipated Discharge Date Admission Date: March 30, 2020 Anticipated date of discharge: 03/30/20 Angela Chu did very well from her surgery this AM. I removed the carious and fractured teeth which will release the pressure from the subperiosteal abscess and control her acute dental pain. The following teeth were removed 4,5,6,11,12 and 31. From my point of view she can be D/C this afternoon. Please prescribe an antibiotic for another 5 days and appropriate pain medication. I will see her in my office in 10-14 days and then I tess get her involved with [facility] dental clinic. Thanks Armando Leonard Results & Data ([facility]) Vital Signs (Past 12 Hours) Vital Signs Temp Pulse Resp BP Pulse Ox 03/31/20 07:33 36.3 C L 60 18 130/85 97 03/30/20 23:00 36.9 C 88 16 143/85 H 97 PG Care Time/CCT Total # of Minutes Spent Total Time Spent with Patient: Total time spent is greater than 50% in coordination of care (as documented) at patient's floor/unit and/or counseling patient: Coding Level of Care Code 35801 Subseq Hosp Care Lvl 1
--- NOTE | 2020-03-31 11:06 | Anesthesiology Progress Note ---
Date of Service March 31, 2020 Anesthesia Post Procedure Vital Signs Vital Signs: Temp Pulse Pulse Resp BP Pulse Ox 03/31/20 10:15 36.9 C 78 14 139/82 93 03/31/20 10:05 77 16 138/80 93 03/31/20 09:55 88 15 147/80 H 100 03/31/20 09:49 36.4 C L 98 H 16 131/75 99 03/31/20 07:33 36.3 C L 60 18 130/85 97 03/30/20 23:00 36.9 C 88 16 143/85 H 97 03/30/20 15:06 36.8 C 75 21 124/78 96 Pain Intensity Head: Pain Intensity: 4 Right Teeth: Pain Intensity: 6 Abdomen: Pain Intensity: 2 Transfer of Care Handoff Completed per policy Notes Mental Status: alert / awake / arousable Patient Amnestic to Procedure: Yes Nausea / Vomiting: adequately controlled Pain: adequately controlled Airway Patency, RR, SpO2: stable & adequate BP & HR: stable & adequate Hydration State: stable & adequate Anesthetic Complications: no major complications apparent
--- NOTE | 2020-03-31 11:18 | Operative Report ---
Post Operative Report Pre & Post Diagnosis Operation Date: 03/31/20 09:00 Pre-Op Diagnosis: Dental Abscess naso labial upper right side , acute pain from fractured/decayed teeth # 4,5,6,11,12,31 Post-Op Diagnosis: Dental Abscess + same as above Problem: Pain,swelling located---upper jaw with gross gingival swelling and subperiosteal abscess due to decayed/fractured teeth Finding: There is a carious, fractured and infected tooth at site#:4,5,6,11,12,31 Plan: Surgical removal of the following tooth/teeth: 4,5,6,11,12,31, I and D of the subperiosteal swelling ( grossly swollen gingival tissues) upper right naso-labial fold area Procedure report: After a complete H&P/ vital signs and oral exam was completed the patient was ready for the surgical procedure. Informed consent was reviewed and the consent form was signed. I gave them time to discuss any questions and if I explained the surgery that I will be performing to their understanding. The following teeth had very deep cervical decay and were extremely sensitive to touch. A full detailed dental exam is needed--referral to [facility] dental needed The patient was positioned and light adjusted, Peridex mouth rinse was used and a final time out was taken to review the correct procedure, once agreed the local anesthesia was given in the standard fashion for the area of surgery. Local Anesthesia: Using 1.8 cc Marcaine as a block # 31 and as an infiltration upper teeth profound anesthesia was obtained within 5-10 minutes. Surgical Note: Now using a periosteal elevator the tissue was reflected to expose the alveolar bone associated with teeth 4,5,6. this released the pus and exposed the bone. I small hemostat was used to open up the naso labial area and cuspid fossa, irrigation was used with NS and Peridex. The drainage was completed no drain was needed as good drainage occurred from the 3 opened sockets. The rongeurs was used to remove bone to allow the forceps to engage solid tooth structure as these teeth had severe decay and fractured enamel. Using a controlled force the teeth were extracted in the standard manner for surgical extractions. Once removed the roots were inspected and the sockets were curetted. Teeth # 12,13 and 31 were simple extractions and removed with forceps. Sutures used: 2-0 chromic used on the upper right side A gauze pressure pack was placed over the socket and the patient was instructed to bite for 10 minutes. Post Op instructions: At this time I inspected the site: bleeding was controlled. The post op instructions were written in the discharge document (diet, oral care, use of gauze, follow up, pain management, activity, no driving if n arcotics were Rx.) Patient will call my office for post op follow up in 10-14 days. Discharge: The patient tolerated the 6 extraction procedure extremely well I discussed with hospitalist staff that she may be discharged once cleared medically. ICD 10 K12.2--cellulitis of mouth K02.63-decay into nerve K05.212-periodontal dx K04.o2-pulpitis CPT and dental codes 34719 I&D vestibular area of upper naso labial area right teeth # 4,5,6= [id number]----hiutyume ext teeth # 11,12,31= [id number]----ujdbna ext Surgeon: Armando Leonard DMD Oral Maxillofacial Surgery [facility] I identified the patient and participated in the time-out.: Yes Procedure Operation Date: 03/31/20 09:00 Actual Procedures p Removal of Teeth #4,5,6,11,12,31(Not Applicable) - Armando Leonard DMD Surgeon Armando Leonard, LESLIE Detective Captain none Estimated Blood Loss 2 Findings Consistent with Post-Op Diagnosis Specimens none Description of Procedure I&D, extraction of fractured abscess teeth x 6 I attest to the content of the Intraoperative Record and any orders documented therein. Any exceptions are noted below.
[2020-03-31] MEDS ORDERED: HYDROCODONE/ACETAMOPHEN 5/325MG TAB PO STA (11:19)
--- NOTE | 2020-03-31 11:38 | Discharge Summary ---
Date of Service March 31, 2020 Admission HPI Per Admitting Provider Kimberley Villasenor is a 35yo C female with history of Anxiety/Depression, insomnia and RLS presenting with diffuse weakness and fatigue. Patient reports that yesterday was her birthday. She had a Zoom birthday republican, drank a little bit of alcohol and went to bed around 02:00 this morning. She took her medications prior to going to bed around 01:30. She woke up this morning around 10:30 and felt diffusely weak and fatigued. She went to work and had two syncopal episodes. She reports that she is currently having a difficult time staying awake and functioning. Her symptoms have been consistent since this morning wit h no worsening or improvement. Recent right maxillary dental infection - currently on Amoxicillin day 2, Hydrocodone. She reports not taking any Hydrocodone since yesterday morning. She denies fevers/chills/nausea/vomiting/diarrhea/constipation. She does have some cough and shortness of breath as well as stuffy nose for the last two days. She also reports slight alteration in her sense of taste where everything tastes sour. No known sick contacts or contacts with Covid+ individuals. She has been trying to socially distance. ER Course: Tylenol, Toradol Admission Exam Per Admitting Provider General: patient resting comfortably, mildly somnolent, NAD, non-toxic in appearance, AA&O x 4 Skin: warm, dry, intact, no rashes or lesions HEENT: NC/AT, PERRL, EOMI, anicteric sclera, conjunctiva without injection, external ear normal to inspection and nontender, nares patent, slightly dry mucus membranes, dentition intact, no oropharyngeal lesions, neck supple, trachea midline, no LAD, no thyromegaly, no JVD Heart: +S1/S2, regular, no m/r/g Lungs: equal air entry bilaterally, no rales/rhonchi/wheezes Abd: +BS, soft, NT/ND, no masses/organomegaly/ascites Ext: warm, 2+ pulses in UE/LE bilaterally, no clubbing/cyanosis or edema Neuro: nonfocal, patient AA&O x 4, speech intact, no facial droop, moving all extremities on command with equal strength 5/5 Principal Diagnosis Subperiosteal Abscess Secondary to Infected Teeth Discharge Exam Constitutional WD/WN, vitals as above no acute distress ENMT tooth extractions of teeth 5, 6, 11, 12, 31 with clots present no visible drainage or purulent material Neck trachea midline, no thyromegaly Respiratory normal respiratory effort, lungs clear to auscultation Cardiovascular RRR, no murmur, no edema Gastrointestinal (Abdomen) normal bowel sounds, soft, nontender, no hepatosplenomegaly Musculoskeletal no cyanosis or clubbing, extremities motor strength 5/5 Skin no rashes, warm and dry Neurologic patellar DTR's 2+ bilat, sensation intact Psychiatric A+Ox3, euthymic affect Lymphatic no cervical or axillary lymphadenopathy Discharge Data Allergies Allergy/AdvReac Type Severity Reaction Status Date / Time latex Allergy Mild RASH Verified 03/29/20 15:25 iodine Allergy Unknown Verified 03/29/20 15:25 cucumber AdvReac Mild GI SYMPTOMS Verified 03/29/20 23:29 shellfish derived AdvReac Mild GI SYMPTOMS Verified 03/29/20 23:29 nitrous oxide AdvReac Anxiety Verified 03/29/20 15:25 Digalloyl Trioleate Allergy Mild SKIN RASH Uncoded 03/29/20 15:25 FROM SUNSCREEN kale AdvReac Gastrointestinal Uncoded 03/29/20 23:29 Upset Consultations 03/29/20 18:38 ED Decision to Admit Stat 03/30/20 13:36 Consult Oromaxillofacial Surgery Routine Procedures Performed Operation Date: 03/31/20 09:00 Actual Procedures p Removal of Teeth #4,5,6,11,12,31(Not Applicable) - Armando Leonard, LESLIE Ordered Studies 03/29/20 15:03 CT head/brain wo con Stat 03/29/20 15:53 CT angio chest PE protocol Stat 03/30/20 10:09 CT facial bones w con Routine Hospital Course (1) Dental decay: Admitted for weakness and fatigue. CT face with numerous dental caries and at least 3 periapical lucencies with largest around LEFT central maxillary incisor with associated cortical breakthrough. Oromaxillofacial surgery was consulted, Dr. Leonard s/p extraction of teeth 4,5,6, 11, 12, 31 Clindamycin while inpatient --> sent with prescription for additional 5 days to complete full course Pain control Follow up outpatient with Dr. Leonard to get set up with CV for dental care (2) Jaw pain: Seconary to #1 (3) Lethargy: Resolved, likely pharmacotherapy with high dose zolpidem 20 mg HS, as well as ropinirole in addition to above. Per patient, had not been taking lorazepam in quite some time. (4) Syncope: EKG reviewed - NSR, slightly tachycardic with HR 90s, improved today to 76 Likely secondary to pharmacotherapy as above, no signs of syncopal events since here in the hospital. No family history of cardiac arrhythmias that she is aware of Follow up outpatient with PCP for ref for tilt table outpatient if symptoms recur (5) Anxiety: Chronic Continued Escitalopram (6) Depression: Cont escitalopram 10 mg daily (7) Insomnia: Held zolpidem 20 mg HS while inpatient, resumed at discharge (8) GERD (gastroesophageal reflux disease): Stable, continued pantoprazole (9) Restless leg syndrome: Held requip for now while inpatient --> resumed at discharge. Pt with history of PLMD and followed by sleep medicine. Sleep study in past with [facility] 4. Discharged home with follow up with Dr. Leonard Total Time Total Time Spent Total Time Spent (In Minutes): 60 Discharge Plan Discharge Items Patient Disposition: Home - Self-Care Reason For Visit: WEAKNESS Discharge Diagnosis: Weakness, dental infection Condition on Discharge: Good Goals: Improve pain control by treating dental infection Activity: Resume your previous activity Lifting: Gradually increase as tolerated Bathing: No limitations Sexual Activity: When tolerated Exercise/Sports: Gradually increase as tolerated Weightbearing: Full weightbearing Non-emergency contact: Primary Care Provider Call non-emergency contact if: you have any medication questions, your pain is not controlled, your pain is worsening, your pain is concerning for you and you have a fever Follow-up/Referrals: Armando Leonard, LESLIE [Physician] - Lila Carlton DO [Primary Care Provider] - Diet: Regular Diet Texture: Easy to Chew Addtl Attending Provider Instructions: You were admitted to [facility] due to weakness and syncopal episode and diagnosed with weakness and lethargy due to pharmacotherapy in the setting of treating a dental infection. During your stay here you were treated with supportive care, medications including IV fluids, pain medications, and antibiotics and your symptoms improved. Imaging studies which were completed include CT of the chest which did not show any acute findings. You were tested for COVID-19 for sx of shortness of breath, lethargy, and weakness, but this test was NEGATIVE. Medications: Continue taking your medications as prescribed Appointments: Follow up with PCP within 1 week, please call the office to schedule an appointment Follow up with dentist/oral surgeon within 1-2 weeks for dental follow up and needs for tooth extraction. ADDITIONAL ACTIVITY RECOMMENDATIONS: * [place] teeth after every meal. It is very important to keep your mouth clean to prevent infection. SPECIAL CARE INSTRUCTIONS: * Keep ice on the side of your face for the next 24 to 36 hours. This will help keep the swelling down. * Tomorrow start rinsing your mouth with 1/2 teaspoon salt in 8 ounces warm water. This rinse should be used every 4-6 hours. * You may experience slight nausea. To prevent this, never take your medication on an empty stomach. If nauseated, take small sips of tray chantal until you feel better; then you may start on applesauce and toast. * Some swelling is common. It should gradually decrease within 4-5 days. * A certain amount of bleeding is to be expected. It is often possible to control mild oozing by placing folded gauze over the area and biting down for 30 minutes. If you are unable to control excessive bleeding, Dr Leonard emergency # [phone] * You may experience some discomfort for a few days. If pain or swelling increases, call Post op follow up with Dr Leonard call office to set up follow up between 10-14 days [facility] discharge Office----[address] [phone] Addtl [employer] Provider Instructions: You are being sent a prescription for an antibiotic, Clindamycin, for an additional 5 days. Please take all doses to complete to full course. You are also being sent with a prescription for pain medication, [place], which you received in the hospital. Please only utilize for breakthrough pain and use tylenol for mild-moderate pain. Please note that the [place] has tylenol in it, and you sould not exceed 3,000mg in a 24 hour period of time. Please follow up with Dr. Leonard's office as above. Please follow up with your primary care doctor in the next 5-7 days. Please return to the emergency room for any worsening pain, fever, chest pain, shortness of breath or for any other symptoms that are concerning for you. It has been a pleasure being apart of the medical team providing for you while you have been in the hospital. Take care! Pending Studies at Discharge: No Stand-Alone Forms: [facility], Opioid Pain Management, Smoking Cessation Medications and DC Order Prescriptions: New hydrocodone-acetaminophen [[place]] 5-325 mg tablet 1 tab PO DAILY PRN (Reason: pain) Qty: 10 RF: 0 clindamycin HCl 300 mg capsule 300 mg PO Q6H 7 Days Qty: 28 RF: 0 Continued zolpidem 10 mg tablet 20 mg PO HS RF: 0 escitalopram oxalate 10 mg tablet 10 mg PO DAILY RF: 0 ropinirole 1 mg tablet 1 mg PO HS RF: 0 pantoprazole 40 mg tablet,delayed release (DR/EC) 40 mg PO DAILYBB RF: 0 rizatriptan 5 mg tablet,disintegrating 5 mg PO UD PRN (Reason: Headache) RF: 0 Discontinued lorazepam 1 mg tablet 1 mg PO BID PRN (Reason: Anxiety) RF: 0 amoxicillin 500 mg tablet 500 mg PO TID Qty: 20 RF: 0 Discharge Orders: Discharge Order (Routine); Ordered 03/31/20 Ordered By: Ana Pereira/Other Patient Handouts: Sensitive Teeth Tx, Decay Tooth, Understanding Healthy Teeth and Gums Admission Data Admit Date/Time: 03/30/20 16:49 Attending Provider: Ramon Wiley Admit Provider: [place] Hopkins Primary Care Provider: Lila Carlton Other Providers: Cary Estrada ; Armando Leonard Coding Level of Care Code D/C Day Management >30 mins Diagnoses Dental decay K02.9 Jaw pain R68.84 Lethargy R53.83 Syncope R55 Syncope type: unspecified Anxiety F41.9 Depression F32.9 Insomnia G47.00 GERD (gastroesophageal reflux disease) K21.9 Esophagitis presence: esophagitis presence not specified Restless leg syndrome G25.81
[2020-03-31] MEDS: ESCITALOPRAM OXALATE 10 MG TAB PO SCH (11:42)
[2020-03-31 12:04] LABS: Calcium 8.3 mg/dl (8.5-10.1); Creatinine Clr Calc Pharmacy 124.6 ml/min; Est GFR (African American) 117.8; Est GFR (Non-African American) 101.6
[2020-03-31 21:35] LABS: Codeine Urine NEGATIVE ng/mL (<50); Hydrocodone Urine 1050 ng/mL (<50); Hydromor Urine 563 ng/mL (<50); Morphine Urine NEGATIVE ng/mL (<50); Norhydrocodone Conf Ur 913 ng/mL (<50); Noroxycodone Urine NEGATIVE ng/mL (<50); Oxycodone Urine NEGATIVE ng/mL (<50); Oxymorph Urine NEGATIVE ng/mL (<50)
== END 2020-03-31 18:30 | disposition home or self-care (01) ==
LOC: ED 14:07 → 2S 14:07 → SUATTDRO 20:03 → 2S 22:24 → 3N 03-30 00:29